=== PATIENT | female | born 1935 | race Caucasian/White ===

== ENCOUNTER 2016-09-15 09:46 | Emergency (ER) | payer OTHER ==
[2016-09-15 08:59] LABS: BASOPHIL% 0.7 % (0-2.5); EOSINOPHIL# 0.2 X10e3 (0-0.7); EOSINOPHIL% 3.5 % (0.0-7.0); HEMATOCRIT 27.4 % (35.0-45.0); LYMPHOCYTE# 0.7 X10e3 (1.0-3.5); LYMPHOCYTE% 11.1 % (17.0-45.0); MEAN CELL VOLUME 75.5 FL (83-96); MEAN CORPUSCULAR HEMOGLOBIN 22.1 PG (28-34); MEAN CORPUSCULAR HGB CONC 29.2 g/dL (30-36); MEAN PLATELET VOLUME 7.2 FL (6.5-11.5); MONOCYTE# 1.1 X10e3 (0-1.0); MONOCYTE% 17.1 % (3.0-12.0); NEUTROPHIL# 4.5 X10e3 (1.5-7.1); NEUTROPHIL% 67.6 % (40-75); PLATELET COUNT 253 X10e3 (140-420); RED BLOOD COUNT 3.62 X10e (3.90-5.30); RED CELL DISTRIBUTION WIDTH 21.1 % (11.0-15.5); WHITE BLOOD COUNT 6.7 X10e3 (4.0-10.5)
[2016-09-15 09:01] LABS: DIFF IND NO
[2016-09-15 09:18] LABS: PARTIAL THROMBOPLASTIN TIME 33.1 SECONDS (23.5-31.3)
[2016-09-15 09:29] LABS: ALBUMIN SERUM 2.8 g/dL (3.5-5.0); BILIRUBIN, DIRECT 0.1 mg/dL (0.0-0.2); BILIRUBIN,INDIRECT 0.4 mg/dL (0.0-0.9); BILIRUBIN,TOTAL 0.5 mg/dL (0.2-2.0); CALCIUM SERUM 8.2 mg/dL (8.4-10.2); CREATININE SERUM 0.8 mg/dL (0.6-1.4); GLOM FILT RATE Estimated 69.2 mL/min (>60); POTASSIUM 3.9 mmol/L (3.5-5.1); PROTEIN TOTAL SERUM 8.2 g/dL (6.0-8.3)
== END 2016-09-15 11:55 | disposition home or self-care (01) ==
LOC: CED 09:46
PROVIDERS: Emergency Medicine
DX: D64.9 Anemia, unspecified (principal); I10 Essential (primary) hypertension
CPT/HCPCS: 36415; 80048; 80076; 85025; 85610; 85730; 86850; 86900; 86901; 99283

== ENCOUNTER 2016-09-26 17:39 | Inpatient (IN) | payer OTHER ==
--- NOTE | ~2016-09-26 | CR72 ---
[facility] A Service of [facility] RADIOLOGY TEXT RESULTS PATIENT: FELIX RIVERA LOCATION: [address]19 : 35 UNIT #: [id number] AGE: [address]: Basil Devi MD SEX: F ORDER DR: [id number] [facility] [address] [facility]. [place], [place] [address] [id number] I MR#: [id number] Acc #: [id number] NAME: FELIX RIVERA : 1935 SEX: F STUDY DATE/TIME: 09/27/2016 14:46 UNIT: [facility] ROOM: [facility] STUDY DESCRIPTION: CR Chest Single View Portable Attending Physician: Basil Devi M.D. Ordering Physician: Hector Doran M.D. Primary Care Physician: No Primary Care Physician MEDICAL IMAGING REPORT This report is preliminary unless electronic signature is present EXAM Portable chest, 09/27 INDICATION Line placement today. FINDINGS AP portable chest is compared with earlier this afternoon. No central venous catheter is identified. There is no pneumothorax. Bilateral infiltrates and bilateral pleural effusions are stable from earlier this afternoon. Dictated by... Shane Moon Jr., M.D. THIS IS AN ELECTRONICALLY VERIFIED REPORT Shane Moon Jr., M.D. at 09/28/2016 8:25 AM PARIS/luma TD: 09/27/2016 17:12 JOB #: [id number] MEDICAL IMAGING REPORT Page 1 of 1 COPY
--- NOTE | ~2016-09-26 | CR72 ---
[facility] A Service [facility] RADIOLOGY TEXT RESULTS PATIENT: FELIX RIVERA LOCATION: [address]27 : 35 UNIT #: [id number] AGE: [address]: Basil Devi MD SEX: F ORDER DR: [id number] [place] [id number] [facility]. [place], [place] [address] [id number] I MR#: [id number] Acc #: [id number] NAME: FELIX RIVERA : 1935 SEX: F STUDY DATE/TIME: 09/30/2016 5:40 UNIT: [facility] ROOM: [facility] STUDY DESCRIPTION: CR Chest Single View Portable Attending Physician: Basil Devi M.D. Ordering Physician: Richelle Blackwell M.D. Primary Care Physician: Primary Care Physician No MEDICAL IMAGING REPORT This report is preliminary unless electronic signature is present EXAM Portable chest INDICATION Shortness of breath for 2 weeks. COMPARISON 09/29/2016. FINDINGS The loculated pneumothorax at the right base appears to have resolved. It may however filled with fluid. There are bilateral pleural effusions which are not significantly changed. There are bilateral interstitial and airspace infiltrates also not significantly changed. Heart size stable. IMPRESSION The previously noted loculated pneumothorax at the right base is no longer present. It may have filled with fluid. Otherwise, there has been no significant change. Dictated by... Johann Painting M.D. THIS IS AN ELECTRONICALLY VERIFIED REPORT Johann Painting M.D. at 09/30/2016 3:56 PM YENIFER/joey TD: 09/30/2016 14:56 JOB #: [id number] [facility] A Service [facility] RADIOLOGY TEXT RESULTS PATIENT: FELIX RIVERA LOCATION: [address] : 35 UNIT #: [id number] AGE: [address]: Basil Devi MD SEX: F ORDER DR: MEDICAL IMAGING REPORT Page 1 of 1 COPY
--- NOTE | ~2016-09-26 | CO ---
Unit #: [id number] #: [id number] Patient: FELIX TREADWELL [id number] [facility]. [place], [place] [address] [id number] I MR#: [id number] NAME: FELIX TREADWELL ROOM: [facility] Age: 81 Sex: F Admission Date: 09/26/2016 : 1935 Attending Physician: Basil Devi M.D. Primary Care Physician: No Primary Care Physician Consultation Date: 09/27/2016 CONSULTATION REPORT REASON FOR CONSULTATION Acute kidney injury. HISTORY OF PRESENT ILLNESS Ms. Treadwell is a confused 81-year-old white female who was sent in from [facility] for failure to thrive there. Again, she is a poor historian and most of the history was obtained from the chart and from the patient's son over the phone. The patient's son, Rikki, says that his mother has been sick off an don since April of last year when she was at [facility] for issues with anemia. She then had an issue with some c-difficile colitis in May that sounds like it was treated in the long-term and outside of the hospital. More recently she has been undergoing heart evaluation by Dr. Coppola and it sounds like thus far she has only had an echo there. The patient was sent in from the nursing because of weakness and a recent diagnosis of a urinary tract infection. She has apparently had some poor p.o. intake there. I asked her about any vomiting or diarrhea and she denied it. Mr. Treadwell said that his mom had recently taken some doxycycline before the recent switch to just a day or so of Cipro by [facility]. We were asked to get involved because of acute kidney injury and high potassium with acidosis. The patient does seem to be a little bit short of breath. She does not have a Oliveira catheter in. Her fluids were stopped because of the concern with pulmonary edema and some shortness of breath. She denies any prior history of kidney problems and so does her son, Rikki. PAST MEDICAL HISTORY 1. Hypertension. 2. Hypothyroidism. 3. Depression. 4. History of anemia. 5. History of c-diff. PAST SURGICAL HISTORY Tonsillectomy. SOCIAL HISTORY The patient lives in a nursing facility at this time. She said she quit smoking about six months ago. No history of alcohol or drug abuse. FAMILY HISTORY The patient denies any family history of kidney disease to me. No one on dialysis. ALLERGIES Unit #: [id number] #: [id number] Patient: FELIX TREADWELL She has a coded allergy to penicillin. HOME MEDICATIONS 1. Lasix 20 mg daily. 2. Cipro 500 mg b.i.d. 3. Hydralazine 25 mg b.i.d. 4. K-Dur 20 mEq b.i.d. 5. Iron tablet b.i.d. 6. Metoprolol succinate 25 mg daily. 7. Paxil 20 mg daily. 8. Synthroid 25 mcg daily. REVIEW OF SYSTEMS A complete 12-point review of systems was attempted, but again made very difficult secondary to her underlying confusion and weakness. She denies any pain issues. No headaches or dizziness. There have been no fevers or chills. In fact, her temperature has been low. No nosebleed reported. No rashes or itching. No flank pain. No bleeding issues. Probable weight loss with her poor p.o. intake. Further review of systems was simply not able to be obtained in this patient. PHYSICAL EXAMINATION GENERAL: This is a frail 81-year-old female, lethargic, appears mildly short of breath. VITALS: Temperature 93, pulse 56, respiratory rate 14, blood pressure 120/57. HEENT: Head is atraumatic, normocephalic. Eyes show pale conjunctivae. No nasal drainage or nosebleed. Oropharynx does look dry. NECK: No rigidity. LUNGS: Diminished breath sounds, especially at the bases. No wheezing. Breathing is mildly labored at rest. HEART: Bradycardic and regular, with soft murmur present. No rub appreciated. ABDOMEN: Soft. Appears nontender. There are bowel sounds present. EXTREMITIES: No lower extremity cyanosis or pitting edema. SKIN: Dry without rashes. MUSCULOSKELETAL: No joint effusions noted. No CVA tenderness to palpation. NEUROLOGIC: Noteworthy for generalized, but no focal deficits. LYMPH: There is no neck or, cervical lymphadenopathy. PSYCHIATRIC: Mood and affect appear normal. DIAGNOSTIC STUDIES IMAGING: CT of the abdomen and pelvis done without contrast did show bilateral pleural effusions and ascites. Generalized body wall edema. Nonobstructing kidney stones. Diffuse atherosclerotic changes. Chest x-ray showed prominence of the pulmonary vascular system, suggesting edema and fluid overload. LABORATORY: Lactic acid level came back at 13.3, troponin negative. Chemistry this afternoon showed a sodium of 138, potassium 6.2, chloride 106, bicarb just 10 for anion gap of 22, glucose 73, BUN 43, creatinine 2.1, calcium 8.3, albumin just 2.7, AST and ALT very high at 1212 and 397 respectively with a CK level of 81. Cortisol level was 44. TSH was normal. CBC showed a white blood cell count of 8.2, hemoglobin 9, platelets 271. No peripheral eosinophilia. BNP was 1276. Urinalysis was nitrite positive with white blood cells and bacteria. No prior labs to Unit #: [id number] #: [id number] Patient: FELIX TREADWELL compare these to. Admission potassium was 6.3 and admission bicarb was 19, so her acidosis has actually gotten worse as has her kidney function and her liver function. ASSESSMENT/PLAN 1. Acute kidney injury. This looks to be secondary to possible sepsis syndrome and prerenal strain from right-sided heart failure. The patient is on antibiotics and we will add Levaquin to the Rocephin coverage. Cardiology will be seeing. Due to her acidosis and hyperkalemia, she will need dialysis today and I did explain this to her son, Rikki, who was in agreement. We have stopped her fluids because of concern about pulmonary edema and her shortness of breath. Her volume status is very tenuous at the moment and we will ask pulmonary to see as well to help guide us with fluid management. 2. Hyperkalemia. The patient will need dialysis. I have ordered STAT dialysis as well as sodium bicarbonate and calcium gluconate. 3. Lactic acidosis. This appears to be due to possible sepsis syndrome and she will be moved to the unit for further care. 4. Urinary tract infection. She is on Rocephin and I will add Levaquin. 5. Right-sided heart failure with significant elevation in liver function test and generalized edema on her CT scan. Cardiology has been asked to see. 6. Previous tobacco abuse. 7. Elevated liver function test. 8. History of c-diff. 9. History of anemia. 10. I did discuss all of these issues with the patient's son, Rikki, and he voiced understanding that his Mom is very ill at this time with heart and kidney issues. Again, we will plan dialysis as soon as possible. I would like to thank Dr. Devi for this consult and the opportunity to participate in the evaluation and care of Ms. Treadwell. Dictated by... Fareed Jay Jr., M.D. NAREN/radha TD: 09/27/2016 12:26 JOB #: [id number] CONSULTATION REPORT Page 1 of 1 X Fareed Jay MD X CONSULTATION REPORT
--- NOTE | ~2016-09-26 | US84 ---
[id number] [facility] [address] [facility]. [place], [place] [address] [id number] I MR#: [id number] Acc #: [id number] NAME: FELIX RIVERA : 1935 SEX: F STUDY DATE/TIME: 09/28/2016 16:23 UNIT: [facility] ROOM: [facility] STUDY DESCRIPTION: US LE Veins Complete Ashu Stdy Attending Physician: Basil Devi M.D. Ordering Physician: Richelle Blackwell M.D. Primary Care Physician: No Primary Care Physician MEDICAL IMAGING REPORT This report is preliminary unless electronic signature is present EXAM Bilateral lower extremity venous ultrasound HISTORY Bilateral lower extremity swelling for 1.5 weeks. TECHNIQUE Venous ultrasound examination of both lower extremities was performed using grayscale, spectral Doppler and color flow Doppler imaging. FINDINGS The examination is negative. There is no evidence of deep venous thrombus from the groin to the lower calf bilaterally. Visualized greater saphenous veins are also patent. IMPRESSION Negative examination. No evidence of lower extremity deep venous thrombosis. Dictated by... Pranay Muniz M.D. THIS IS AN ELECTRONICALLY VERIFIED REPORT Pranay Muniz M.D. at 09/29/2016 11:28 PM HUEY/park TD: 09/29/2016 00:17 JOB #: [id number] MEDICAL IMAGING REPORT Page 1 of 1 COPY
--- NOTE | ~2016-09-26 | NM69 ---
[facility] A Service of [facility] RADIOLOGY TEXT RESULTS PATIENT: FELIX RIVERA LOCATION: [address]27 : 35 UNIT #: [id number] AGE: [address]: Basil Devi MD SEX: F ORDER DR: [id number] [facility] [address] [facility]. [place], [place] [address] [id number] I MR#: [id number] Acc #: [id number] NAME: FELIX RIVERA : 1935 SEX: F STUDY DATE/TIME: 09/29/2016 8:19 UNIT: [facility] ROOM: [facility] STUDY DESCRIPTION: NM Pulm Vent and Perf Attending Physician: Basil Devi M.D. Ordering Physician: Hector Doran M.D. Primary Care Physician: Primary Care Physician No MEDICAL IMAGING REPORT This report is preliminary unless electronic signature is present EXAM Ventilation-perfusion study of the lungs HISTORY Elevated D-dimer, weakness, bilateral lower extremity swelling. History of CHF. Right-sided pneumothorax seen on CT scan. FINDINGS The patient was given 31.3 mCi of technetium 99m DTPA in aerosol form for the ventilation study and 5.4 mCi of technetium 99m MAA for the perfusion study. There is a comparison chest x-ray from the same day. The ventilation-perfusion images are similar in appearance with decreased ventilation and perfusion in the right base but the patient has a small pneumothorax and she has bilateral effusions as well. I do not see any mismatched defects. IMPRESSION There are no mismatched perfusion ventilation defects. I feel the study indicates a low probability for pulmonary embolus. Dictated by... Wagner Staley M.D. THIS IS AN ELECTRONICALLY VERIFIED REPORT Wagner Staley M.D. at 09/29/2016 4:07 PM Uziel TD: 09/29/2016 10:22 JOB #: [id number] MEDICAL IMAGING REPORT Page 1 of 1 COPY
--- NOTE | ~2016-09-26 | FU ---
[facility] Nutrition Therapy DATE: 10/09/16 Patient: FELIX RIVERA Physician: KUSHAL Address: [facility] Room/Bed: [address] [place] [address], Zip: [place] [address] Admit Date: 09/26/16 Date of : [birth year] Height: 5 8 Weight: 133 60.4 NUTRITION MONITORING/FOLLOW-UP: Reason: PT SEEN FOR [id number] DX: ORLANDO PT HAS BEEN PLACED ON COMFORT MEASURES ONLY. RD AVAILABLE IF NEEDED Respectfully, MORENITA FLETCHER MS, RD, LD Food and Nutritional Services [facility] cc: client file
--- NOTE | ~2016-09-26 | CT57 ---
[facility] A Service of [facility] RADIOLOGY TEXT RESULTS PATIENT: FELIX RIVERA LOCATION: [address]27 : 35 UNIT #: [id number] AGE: [address]: Basil Devi MD SEX: F ORDER DR: [id number] [facility]. [place], [place] [address] [id number] I MR#: [id number] Acc #: [id number] NAME: FELIX RIVERA : 1935 SEX: F STUDY DATE/TIME: 09/28/2016 12:30 UNIT: [facility] ROOM: [facility] STUDY DESCRIPTION: CT Chest Wo Cont Attending Physician: Basil Devi M.D. Ordering Physician: Richelle Blackwell M.D. Primary Care Physician: No Primary Care Physician MEDICAL IMAGING REPORT This report is preliminary unless electronic signature is present EXAM CT of the chest without contrast 09/28/2016 INDICATIONS Respiratory distress and weakness for 2 weeks. Patient has a history of congestive heart failure. TECHNIQUE Axial CT images were obtained from the thoracic inlet through the dome of the diaphragm. No intravenous contrast material was administered. This CT exam was performed with one or more of the following radiation dose reduction techniques: automatic exposure control, adjustment of mA and/or kV according to patient size, and iterative reconstruction. FINDINGS This patient has bilateral large pleural effusions right greater than left. Very small right-sided pneumothorax is noted. Patient has cardiomegaly and interlobular septal thickening favored to represent congestive heart failure. The thyroid gland appears unremarkable, trachea and esophagus are within normal limits. There is trace pericardial effusion, there are coronary artery calcifications as well as dystrophic calcifications of the mitral valve annulus. Patient is suspected to have gallstones incompletely seen on this exam, no acute abnormalities seen within the upper abdomen. No aggressive osseous abnormalities are seen. IMPRESSION 1. Cardiomegaly and interlobular septal thickening favored to represent congestive heart failure. 2. Large bilateral pleural effusions right greater than left. 3. The patient is also noted to have a very small right-sided pneumothorax. Efforts are being made to contact the patient's nurse at the time of this dictation. [facility] A Service of [facility] RADIOLOGY TEXT RESULTS PATIENT: FELIX RIVERA LOCATION: [facility] CICCU2-07 : 35 UNIT #: [id number] AGE: [address]: Basil Devi MD SEX: F ORDER DR: 4. Also noted but not mentioned in the report is anasarca. 5. Cholelithiasis. Findings were reviewed with the patient's nurse following this dictation. Dictated by... Erma Hughes M.D. THIS IS AN ELECTRONICALLY VERIFIED REPORT Erma Hughes M.D. at 09/29/2016 10:04 AM DEAN/lj TD: 09/28/2016 18:17 JOB #: [id number] MEDICAL IMAGING REPORT Page 1 of 1 COPY
--- NOTE | ~2016-09-26 | CR170 ---
[facility] A Service of [facility] RADIOLOGY TEXT RESULTS PATIENT: FELIX RIVERA LOCATION: [address] 237- : 35 UNIT #: [id number] AGE: [address]: Santhosh Rebollar MD SEX: F ORDER DR: [id number] [facility] [address] [facility]. [place], [place] [address] [id number] I MR#: [id number] Acc #: [id number] NAME: FELIX RIVERA : 1935 SEX: F STUDY DATE/TIME: 10/17/2016 15:27 UNIT: [facility] ROOM: [facility] STUDY DESCRIPTION: CR Knee 2 Views Rt Attending Physician: Santhosh Rebollar M.D. Ordering Physician: Santhosh Rebollar M.D. Primary Care Physician: No Primary Care Physician MEDICAL IMAGING REPORT This report is preliminary unless electronic signature is present EXAM Right knee INDICATIONS Right knee pain for 1 month. Pain with weightbearing. FINDINGS Two views of the right knee without comparison. There is no acute fracture or dislocation. No knee effusion. The joint spaces are well preserved. Atherosclerotic calcifications are identified in the popliteal artery. IMPRESSION Negative right knee Dictated by... Arjun Leslie M.D. THIS IS AN ELECTRONICALLY VERIFIED REPORT Arjun Leslie M.D. at 10/18/2016 7:35 AM KATT/park TD: 10/17/2016 23:40 JOB #: [id number] MEDICAL IMAGING REPORT Page 1 of 1 COPY
--- NOTE | ~2016-09-26 | CR72 ---
[facility] A Service of [facility] RADIOLOGY TEXT RESULTS PATIENT: FELIX RIVERA LOCATION: [address] : 35 UNIT #: [id number] AGE: [address]: Basil Devi MD SEX: F ORDER DR: [id number] [facility] [address] [facility]. [place], [place] [address] [id number] I MR#: [id number] Acc #: [id number] NAME: FELIX RIVERA : 1935 SEX: F STUDY DATE/TIME: 10/01/2016 05:06 UNIT: [facility] ROOM: [facility] STUDY DESCRIPTION: CR Chest Single View Portable Attending Physician: Basil Devi M.D. Ordering Physician: Richelle Blackwell M.D. Primary Care Physician: Primary Care Physician No MEDICAL IMAGING REPORT This report is preliminary unless electronic signature is present EXAM Portable chest 10/01/2016 at 05:06 INDICATION Respiratory failure, weakness. FINDINGS AP portable chest is compared with 09/30/2016. ET tube remains in good position. Heart size stable. There are continued infiltrates in both [id number]-[id number]-fpfdt lungs. Small bilateral effusions are stable. No pneumothorax is seen. Dictated by... Shane Moon Jr., M.D. THIS IS AN ELECTRONICALLY VERIFIED REPORT Shane Moon Jr., M.D. at 10/02/2016 5:23 AM PARIS/billy TD: 10/01/2016 22:10 JOB #: [id number] MEDICAL IMAGING REPORT Page 1 of 1 COPY
--- NOTE | ~2016-09-26 | A ---
[facility] Nutrition Therapy DATE: 10/02/16 Patient: FELIX RIVERA Physician: KUSHAL Address: [facility] Room/Bed: [address], Zip: [place] [address] Admit Date: 09/26/16 Date of : 35 Height: 5 8 Weight: 125 57 NUTRITIONAL ASSESSMENT: REASON: Enteral nutrition consult Admitting Dx: 81 y/o female admitted with AKA and dehydration, had dialysis catheter placed 09/27, transfer to ICU from [facility] on 4L nasal cannula, now intubated PMH: Depression, hypothyroidism, HTN Anthropometrics: Ht: 68", admission wt: 59.4 kg, current wt: 57 kg, BMI: 19.9 (normal; based on admission wt) Labs: Na 130, Glucose 155, BUN 29, Creat 2.0, AST 470, ALT 419, Glucose POC 150, Amylase 136, Lipase 108, GFR 22.8, K+ WNL, Mg WNL on 10/01, no Phos ordered Meds: Mag-ox, Bumex, Solu-Cortef, IV Levaquin, Synthroid (currently ordered PO however pt is intubated), Zofran prn, pressors and sedation off I/O & Bowel function: LBM unknown, DHT in place Skin Integrity: Stage II pressure ulcer R heel, blanchable redness coccyx, redness L spine area Estimated Nutrition Needs: 2134-0726 kcals per day (25-30 kcals/kg) 71-83 g protein per day (1.2-1.4 g/kg) Fluids per MD Assessment: Chart and hospital course reviewed- see admitting dx and PMH as stated above. RD assessing per weekend consult for enteral nutrition recommendations, on-call RD spoke with nursing yesterday after being paged and recommended Nepro formula; start @ 15 ml/hr and increase by 10 ml q 12 hours to goal of 40 ml/hr. That RD also noted pt has had poor oral intake FINANCIAL REPORTING DIRECTOR and is at risk for refeeding syndrome. EN not yet started as the patient got a bronch yesterday, however DHT is in place and feeds will start today. Patient diagnosed with ORLANDO and has been on HD however MD states she will get no more dialysis. Nursing reports renal function worsening and MD is happy with Nepro formula, although the patient's potassium is WNL and Phos lab has not been drawn. The patient is fluid overloaded on Bumex, hyponatremia noted. Nepro likely most appropriate formula since she will no longer be receiving dialysis and kidney function is worsening, agree with rate. See recs below, will follow. Dx: Inadequate energy intake r/t intubation AEB NPO status, need for EN. [facility] Nutrition Therapy DATE: 10/02/16 Patient: FELIX RIVERA Physician: KUSHAL Address: [facility] Room/Bed: [address], Zip: [place] [address] Admit Date: 09/26/16 Date of : 35 Height: 5 8 Weight: 125 57 Intervention: Start EN per DHT Monitoring, Evaluation and Goals: 1. EN consistent with estimated nutrition needs. 2. Improvement in labs (lytes, glucose, BUN, Creatinine, AST, ALT, GFR, check Phos). 3. Promote wound healing noting Stage II pressure ulcer. 4. Prevent unintentional weight loss. Monitor: Per protocol, criteria to determine if above goals met Recommendations: 1. Start enteral nutrition per DHT with Nepro @ 15 ml/hr, increasing rate by 10 ml q 12 hours until goal rate of 40 ml/hr is reached, to provide 1728 kcals, 78 g protein and 701 ml water. Add free water flushes per MD once at goal rate once hyponatremia resolved. *Please check Phos lab. Monitor for signs of refeeding syndrome and replace lytes prn. 2. Consider changing Synthroid administration to IV now that patient is intubated. If given per DHT enteral feeds will need to be held 1 hour before and after administration, meaning enteral feeds will run over 22 hours per day, which will still meet the patient's estimated nutrition needs. 3. Please weigh q 3 days for monitoring purposes. 4. If extubated advance to 2g sodium diet per WORKFORCE PLANNING ANALYST. RD will follow hospital course Moderate-severe nutrition risk Respectfully, Maty Timmons, ANNA, LD Food and Nutritional Services [facility] cc: client file
--- NOTE | ~2016-09-26 | TOC ---
Unit #: [id number] #: [id number] Patient: FELIX RIVERA [id number] [facility]. [place], [place] [address] [id number] I MR#: [id number] NAME: FELIX RIVERA ROOM: [facility] Age: 81 Sex: F Admission Date: 09/26/2016 : 1935 Attending Physician: Basil Devi M.D. Primary Care Physician: Primary Care Physician No TRANSFER OF CARE SUMMARY DISCHARGE DIAGNOSES 1. Acute hypoxic respiratory failure. 2. Septic shock. 3. Pneumonia. 4. Lactic acidosis. 5. Acute kidney injury. 6. Severe tricuspid regurgitation. 7. Shock liver. 8. Anemia. 9. Right-sided pneumothorax. 10. Hyponatremia. HOSPITAL COURSE The patient is an 81-year-old female who presented to [facility] on 09/26/2016 secondary to feeling weak. At the time of admission, the patient was a very poor historian and essentially unable to provide a history. She was noted to have a creatinine of 1.8 and was thought to have urinary tract infection. She was also noted to have hyperkalemia and was admitted for treatment. She was started on IV fluids and Rocephin. The following morning, the patient was noted to have become much more acidotic. Her bicarb was noted to be 10 and a lactic acid was performed. Ultimately, this returned at 13 and the patient was bolused with fluids per sepsis protocol. A 2D echo was ordered as well. She was noted to have an elevated BNP at 1276. The patient's 2D echo returned showing a normal ejection fraction at 50%. She was, however, noted to have some right ventricular volume overload and a severely dilated left atrium and severely enlarged right atrium with a severely dilated right ventricle as well. She was noted to have severe tricuspid regurgitation. Given the acidosis and worsening renal function, a nephrology consult was obtained. She was prepped for possible hemodialysis. She was then transferred to the ICU. The patient was initially managed with an attempt at diuresis with pressors, Bumex and gentle hydration. When this ultimately failed to produce results, the patient was started on hemodialysis. The patient did ultimately decompensate from a respiratory standpoint. Her urine cultures had returned negative several days prior and the source of the patient's infection had ultimately been determined to be pneumonia. Unit #: [id number] #: [id number] Patient: FELIX RIVERA The patient had been switched to Rocephin and Levaquin at the time of transfer to the ICU. When her respiratory status declined three days later the patient ultimately then required intubation. Shortly after intubation, the patient's urine output picked up dramatically. On 09/28/2016, the patient was noted to have 55 mL of urine out and on 10/01/2016, the patient diuresed 4 liters. She has only needed a couple of hemodialysis treatments at this point and given the pickup of urine output, she at this time required no further dialysis. The patient did develop a right pneumothorax and has had a chest tube placed at this time. Dictated by... Basil Devi M.D. NOHEMI/shaheed TD: 10/02/2016 21:01 JOB #: [id number] TRANSFER OF CARE SUMMARY Page 1 of 1 X Basil Devi MD X TRANSFER OF CARE SUMMARY
--- NOTE | ~2016-09-26 | CR72 ---
[facility] A Service of [facility] RADIOLOGY TEXT RESULTS PATIENT: FELIX RIVERA LOCATION: CICCU3 CICCU3-19 : 35 UNIT #: [id number] AGE: [address]: Basil Devi MD SEX: F ORDER DR: [id number] [facility] [address] [facility]. [place], [place] [address] [id number] I MR#: [id number] Acc #: [id number] NAME: FELIX RIVERA : 1935 SEX: F STUDY DATE/TIME: 09/26/2016 23:32 UNIT: CEDOF ROOM: 30062 STUDY DESCRIPTION: CR Chest Single View Portable Attending Physician: Ayah Pederson M.D. Ordering Physician: Ayah Pederson M.D. Primary Care Physician: Primary Care Physician No MEDICAL IMAGING REPORT This report is preliminary unless electronic signature is present EXAM Portable chest HISTORY Shortness of air, [place]. COMPARISON None. FINDINGS Portable view of the chest demonstrates cardiomegaly with prominence of pulmonary vascular and interstitium suggesting pulmonary edema or fluid overload. Small left pleural effusion and trace right pleural effusion. Minimal aortic atherosclerotic changes. No invasive tubes or lines. No pneumothorax Dictated by... Madeline Painting M.D. THIS IS AN ELECTRONICALLY VERIFIED REPORT Madeline Painting M.D. at 09/27/2016 10:32 PM AMOL/billy TD: 09/27/2016 00:11 JOB #: [id number] MEDICAL IMAGING REPORT Page 1 of 1 COPY
--- NOTE | ~2016-09-26 | CO ---
Unit #: [id number] #: [id number] Patient: LORRI TREADWELL [id number] [address] [id number] I MR#: [id number] NAME: LORRI TREADWELL ROOM: 237 Age: Sex: F Admission Date: 09/26/2016 : 1935 Attending Physician: Santhosh Rebollar M.D. Primary Care Physician: Primary Care Physician No CONSULTATION REPORT To whom it may concern: RE: Patient Lorri Treadwell, date of 1935. Patient was admitted on 09/26/2016 with the above discharge and/or admission diagnoses. Unfortunately, in accordance with family-s wishes, patient was made comfort care measures only and will not be returned to assisted living facility. Please see above discharge summary for details of hospital course. Certainly, if you should have any questions in regard to the care of this patient or her hospital course, please do not hesitate to contact me. Dictated by... Iam Small/servando TD: 10/04/2016 12:17 JOB #: [id number] CONSULTATION REPORT Page 1 of 1 X Santhosh Rebollar MD X CONSULTATION REPORT
--- NOTE | ~2016-09-26 | CR72 ---
[facility] A Service of [facility] RADIOLOGY TEXT RESULTS PATIENT: FELIX RIVERA LOCATION: [address] : [birth year] UNIT #: [id number] AGE: [address]: Basil Devi MD SEX: F ORDER DR: [id number] [facility] [address] [facility]. [place], [place] [address] [id number] I MR#: [id number] Acc #: [id number] NAME: FELIX RIVERA : 1935 SEX: F STUDY DATE/TIME: 09/29/2016 5:37 UNIT: [facility] ROOM: [facility] STUDY DESCRIPTION: CR Chest Single View Portable Attending Physician: Basil Devi M.D. Ordering Physician: Richelle Blackwell M.D. Primary Care Physician: Primary Care Physician No MEDICAL IMAGING REPORT This report is preliminary unless electronic signature is present EXAM Portable chest INDICATION Follow up congestive heart failure and shortness of air. FINDINGS A portable view of the chest was obtained. There is a small well-circumscribed air density collection in the right base. The CT scan from yesterday showed this to be a small loculated right pneumothorax. It is about 5 cm in maximum dimension. There are diffuse infiltrates throughout the lungs suggesting edema. There are low lung volumes. The heart size is normal. IMPRESSION 1. There is a small right base loculated pneumothorax measuring about 5.5 cm in maximum dimension. It was noted on the CT scan done the day before and has not changed significantly. 2. Diffuse infiltrates suggesting edema. Dictated by... Wagner Staley M.D. THIS IS AN ELECTRONICALLY VERIFIED REPORT Wagner Staley M.D. at 09/29/2016 8:15 AM KHADIJAH/joey TD: 09/29/2016 07:25 [facility] A Service of [facility] RADIOLOGY TEXT RESULTS PATIENT: FELIX RIVERA LOCATION: [address] : 35 UNIT #: [id number] AGE: [address]: Basil Devi MD SEX: F ORDER DR: JOB #: [id number] MEDICAL IMAGING REPORT Page 1 of 1 COPY
--- NOTE | ~2016-09-26 | CR72 ---
[facility] A Service of [facility] RADIOLOGY TEXT RESULTS PATIENT: FELIX RIVERA LOCATION: [address]27 : 35 UNIT #: [id number] AGE: [address]: Basil Devi MD SEX: F ORDER DR: [id number] [facility] [address] [facility]. [place], [place] [address] [id number] I MR#: [id number] Acc #: [id number] NAME: FELIX RIVERA : 1935 SEX: F STUDY DATE/TIME: 10/02/2016 UNIT: [facility] ROOM: [facility] STUDY DESCRIPTION: CR Chest Single View Portable Attending Physician: Baisl Devi M.D. Ordering Physician: Katlin Castillo M.D. Primary Care Physician: Primary Care Physician No MEDICAL IMAGING REPORT This report is preliminary unless electronic signature is present EXAM Chest portable 10/02/2016 09:07 hours HISTORY 81-year-old woman status post chest tube placement today for right pneumothorax. Shortness of air. COMPARISON 10/02/2016 03:26 hours FINDINGS Portable upright chest demonstrates stable endotracheal tube and flexible feeding tube. There is a new small caliber tube at the right lung apex with decrease in size of the right pneumothorax with approximately 5% remaining pneumothorax. Interstitial change in both lungs is stable. IMPRESSION New small caliber tube at the right lung apex. There is decrease in the right pneumothorax now measuring approximately 5%. Previously 20%. Stable bilateral interstitial changes. Dictated by... Lashanda Julio M.D. THIS IS AN ELECTRONICALLY VERIFIED REPORT Lashanda Julio M.D. at 10/02/2016 2:26 PM SMM/annita TD: 10/02/2016 12:52 JOB #: [id number] MEDICAL IMAGING REPORT Page 1 of 1 COPY
--- NOTE | ~2016-09-26 | EKG ---
PATIENT: FELIX RIVERA UNIT #: [id number] Ventricular Rate: 68 BPM Atrial Rate: 68 BPM P-R Interval: 168 ms QRS Duration: 70 ms Q-T Interval: 440 ms QTC Calculation(Bezet): 467 ms P [place]: 70 degrees Calculated R [place]: 13 degrees Calculated T [place]: 74 degrees Diagnosis Line: Normal sinus rhythm Diagnosis Line: Cannot rule out Anteroseptal infarct , age Diagnosis Line: undetermined Diagnosis Line: Abnormal ECG Diagnosis Line: No previous ECGs available Diagnosis Line: Confirmed by VIRAL HAMMONDS MD ([id number]) on 09/27/2016 Diagnosis Line: 10:05:29 AM INTERPRETING MD: CASSIUS CARDONA
--- NOTE | ~2016-09-26 | EKG ---
PATIENT: FELIX RIVERA UNIT #: [id number] Ventricular Rate: 58 BPM Atrial Rate: 58 BPM P-R Interval: 168 ms QRS Duration: 76 ms Q-T Interval: 540 ms QTC Calculation(Bezet): 530 ms P [place]: 65 degrees Calculated R [place]: 37 degrees Calculated T [place]: 26 degrees Diagnosis Line: Sinus bradycardia Diagnosis Line: Low voltage QRS Diagnosis Line: Septal infarct (cited on or before 26-SEP-2016) Diagnosis Line: Prolonged QT Diagnosis Line: Abnormal ECG Diagnosis Line: When compared with ECG of 26-SEP-2016 18:04, Diagnosis Line: Questionable change in initial forces of Anterior Diagnosis Line: leads Diagnosis Line: T wave amplitude has increased in Lateral leads Diagnosis Line: QT has lengthened Diagnosis Line: Confirmed by ANDREW RAMÍREZ MD ([id number]) on 09/28/2016 Diagnosis Line: 11:14:24 PM INTERPRETING MD: DARRELL CARDONA
--- NOTE | ~2016-09-26 | FU ---
[facility] Nutrition Therapy DATE: 10/04/16 Patient: FELIX RIVERA Physician: KUSHAL Address: [facility] Room/Bed: [address], Zip: [place] [address] Admit Date: 09/26/16 Date of : [birth year] Height: 5 8 Weight: 133 60.4 NUTRITION MONITORING/FOLLOW-UP: Reason: PT SEEN FOR ENTERAL NUTRITION SUPPORT FOLLOW-UP DX: [place], DEHYDRATION Anthropometrics: 5'8", WT: 133# (60 KG), BMI: 20.2 -WEIGHTS HAVE BEEN STABLE SINCE ADMIT Labs: GLU: 115, BUN: 52, CREAT: 1.7, CA+:8.2, ALB: 2.0, AST: 255, ALT: 282, K+:3.0, AMYLASE: 136, LIPASE: 108, GFR: 27.8 Meds: SENOKOT, VERSED, NACL, SYNTHROID (VIA PO FROM [employer] BUT RN REPORTS VIA DHT), ZOFRAN, KCL I&O's: 1302/1880 Skin: STAGE 2 PRESSURE ULCER (R) HEEL; BLANCHABLE REDNESS COCCYX; REDNESS (L) SPINE Estimated Nutrition Needs: [id number] KCAL 71-83 G PRO Assessment: CHART REVIEWED AND EVENTS NOTED. PT SEEN FOR ENTERAL NUTRITION SUPPORT FOLLOW-UP. PT CONTINUES TO BE INTUBATED AND SEDATED RECEIVING EN OF NEPRO @ 40 ML/HR. PER RN AND CHART, PT TOLERATING EN, NOTING NO ISSUES AT THIS TIME. FAMILY IN ROOM REPORTED NO DIET QUESTIONS AT THIS VISIT. PER PUMP HISTORY, PT RECEIVING ~76% ESTIMATED NUTRIENT NEEDS PAST [address] TO CONTINUE TO FOLLOW. OF NOTE, PT'S K+ IS LOW. NO PHOS LEVEL OBTAINED YET. -EN PROVIDES X 22 HOURS (PT ON SYNTHROID)-1584 KCAL, 71 G PRO, 642 ML FREE H20 Dx: INADEQUATE ENERGY INTAKE R/T INTUBATION AEB NPO STATUS, NEED FOR EN.-AEB RESOLVED. NEW DX: INADEQUATE ENERGY INTAKE R/T INTUBATION PT RECEIVING EN. Intervention: 1. ENTERAL NUTRITION SUPPORT Monitoring, Evaluation and Goals: 1. ENTERAL NUTRITION; PROVIDE >80% ESTIMATED NUTRIENT NEEDS-IN PROGRESS/NOT MET 2. LABS; WNL- IN PROGRESS 3. SKIN; PROMOTE SKIN HEALING-IN PROGRESS 4. WEIGHTS; PREVENT WEIGHT LOSS-ACTIVE MONITOR: [facility] Nutrition Therapy DATE: 10/04/16 Patient: FELIX RIVERA Physician: KUSHAL Address: [facility] Room/Bed: [address], Zip: [place] [address] Admit Date: 09/26/16 Date of : [birth year] Height: 5 8 Weight: 133 60.4 -TF RATE/RESIDUALS -WEIGHTS -EXTUBATION? -LABS Recommendations: 1. PLEASE OBTAIN PHOS LEVEL 2. RECOMMEND TO CONTINUE CURRENT ENTERAL NUTRITION SUPPORT OF NEPRO @ 40 ML/HR X 22 HOURS (PT ON SYNTHROID-HOLD ONE HOUR BEFORE AND ONE HOUR AFTER ADMINISTRATION) -ADEQUATE FOR PT'S CURRENT ESTIMATED NEEDS CONTINUE FREE H20 FLUSHES PER MD 3. ONCE PT'S ELECTROLYTES WITHIN NORMAL RANGE, RECOMMEND TO CHANGE CURRENT ENTERAL NUTRITION SUPPORT TO JEVITY 1.5 @ 20 ML/HR, ADVANCE 10 ML q 8 HOURS TO GOAL RATE OF 45 ML/HR + SUGAR-FREE PROSTAT ONCE DAILY X 22 HOURS (PT ON SYNTHROID) -PROVIDES 1585 KCAL, 78 G PRO, 752 ML FREE H20 ADD FREE H20 FLUSHES PER MD 4. ONCE PT EXTUBATED, ADVANCE DIET PER LEAN ENGINEER + [address] WILL F/U PER PROTOCOL PT IS MOD/SEVERELY COMPROMISED Respectfully, MORENITA FLETCHER MS, RD, LD [facility] cc: client file
--- NOTE | ~2016-09-26 | OR ---
Unit #: [id number] #: [id number] Patient: FELIX RIVERA [id number] [place], [place] [address] [id number] I MR#: [id number] NAME: FELIX RIVERA ROOM: [facility] Date of Procedure: 10/03/2016 Admission Date: 09/26/2016 Surgeon: Ethan Castillo M.D. : 1935 Attending Physician: Santhosh Rebollar M.D. Primary Care Physician: No Primary Care Physician PROCEDURE OPERATIVE NOTE PREOPERATIVE DIAGNOSIS Respiratory failure. PROCEDURE PERFORMED Small catheter chest tube placement. PREMEDICATION Lidocaine topical. INDICATION Right-sided pneumothorax. DESCRIPTION OF PROCEDURE An informed consent was obtained from the patient's son, after explaining the benefits and risks of this procedure. The patient's right chest was prepped and cleaned with chlorhexidine and then a body drape was applied. Then, a needle was inserted in the second intercostal space and 1% lidocaine was instilled. Then, a small port catheter needle was inserted in the second intercostal space until air flow was filled in the syringe and then a small port catheter was threaded over the needle inside the chest cavity and then it was connected to the chest tube chamber. A bubble was felt in the box and STAT x-ray confirmed placement. The patient tolerated her procedure well with no immediate complication. Suture was applied with clean dressing. Dictated by... Ethan Castillo M.D. EA/leni TD: 10/03/2016 10:48 JOB #: [id number] Unit #: [id number] #: [id number] Patient: FELIX RIVERA PROCEDURE OPERATIVE NOTE Page 1 of 1 X ETHAN AGUILAR MD X PROCEDURE OPERATIVE NOTE
--- NOTE | ~2016-09-26 | CR72 ---
[facility] A Service of [facility] & [facility] RADIOLOGY TEXT RESULTS PATIENT: FELIX RIVERA LOCATION: [address] : [birth year] UNIT #: [id number] AGE: [address]: Basil Devi MD SEX: F ORDER DR: [id number] [facility] [address] [facility]. [place], [place] [address] [id number] I MR#: [id number] Acc #: [id number] NAME: FELIX RIVERA : 1935 SEX: F STUDY DATE/TIME: 10/02/2016 03:26 UNIT: [facility] ROOM: [facility] STUDY DESCRIPTION: CR Chest Single View Portable Attending Physician: Basil Devi M.D. Ordering Physician: Richelle Blackwell M.D. Primary Care Physician: Primary Care Physician No MEDICAL IMAGING REPORT This report is preliminary unless electronic signature is present EXAM Portable chest 10/02/2016 at 03:26 INDICATION Respiratory failure. Ventilator patient. FINDINGS AP portable chest is compared with 10/01/2016. ET tube is well positioned. There is a new right side hydropneumothorax which probably measures at least 20%. No midline shift. Consolidations in both ats-zs-yfpsb lungs are probably slightly worsened. No left-side pneumothorax is seen. ADDENDUM Findings have been discussed directly with the patient's nurse, Rupali, in the ICU who reports she will notify the patient's physician immediately. STAT * RESULT Dictated by... Shane Moon Jr., M.D. THIS IS AN ELECTRONICALLY VERIFIED REPORT Shane Moon Jr., M.D. at 10/02/2016 5:22 AM PARIS/billy TD: 10/02/2016 03:50 JOB #: [id number] MEDICAL IMAGING REPORT [facility] A Service of [facility] RADIOLOGY TEXT RESULTS PATIENT: FELIX RIVERA [facility] UNIT #: [id number] AGE: [address]: Basil Devi MD SEX: F ORDER DR: Page 1 of 1 COPY
--- NOTE | ~2016-09-26 | CO ---
Unit #: [id number] #: [id number] Patient: FELIX RIVERA [id number] [address] [place], [place] [address] [id number] I MR#: [id number] NAME: FELIX RIVERA ROOM: [facility] Age: 81 Sex: F Admission Date: 09/26/2016 : 1935 Attending Physician: Basil Devi M.D. Primary Care Physician: Primary Care Physician No CONSULTATION REPORT REASON FOR CONSULTATION Congestive heart failure. HISTORY OF PRESENT ILLNESS This is an 81-year-old white female who was seen at [facility] in April 2016 for acute respiratory failure and qvmqa-dw-tocecer diastolic heart failure. Echocardiogram at that time showed diastolic dysfunction with preserved ejection fraction of 65%. After discharge, the [facility] was [facility] where she remains. At some point, she followed up with Dr. Coppola as an outpatient. The patient is a poor historian but says she had weakness for the past week and a half. According to the emergency room records, the patient was sent from the [facility] because of weakness for two weeks. She had recently been diagnosed with urinary tract infection and has been on Cipro. She apparently had an episode of nausea but no diarrhea or vomiting. On arrival, potassium level was elevated at 6.3. She was treated with bicarbonate, Kayexalate and calcium gluconate in the emergency room. She was started on IV fluids. There was elevation of LFTs with CT of the abdomen and pelvis revealing cholelithiasis. Ultrasound of the gallbladder showed mild abdominal wall edema. Her chest x-ray was suggestive of pulmonary edema. BNP elevated at 1276. Lactic acid level was 13.3 consistent with severe sepsis. She was hypothermic with temperature of 93. She was initially normotensive, however her blood pressure dropped. She was transferred to the intensive care unit for further monitoring. Troponin was negative. EKG on admission showed questionable anteroseptal infarct. She has had no prior cardiac history or testing according to previous records. She has a history of hypertension and a remote history of nicotine abuse. PAST MEDICAL HISTORY 1. 2D echocardiogram April 2016 at [facility] shows ejection fraction of 65% with grade 2 diastolic dysfunction. Left atrial cavity mildly dilated. Qtdh-mo-iojhucew mitral regurgitation. 2. Hypertension. 3. Diastolic heart failure. 4. Hypothyroidism. 5. Depression. 6. Former smoker. PAST SURGICAL HISTORY Tonsillectomy. [facility] MEDICATIONS Unit #: [id number] #: [id number] Patient: FELIX RIVERA 1. Lasix 20 mg daily. 2. Cipro 500 mg b.i.d. 3. Hydralazine 25 mg b.i.d. 4. Potassium chloride 20 mEq b.i.d. 5. Ferrous sulfate 325 mg b.i.d. 6. Metoprolol succinate 25 mg daily. 7. Paxil 20 mg daily. 8. Levothyroxine 25 mcg daily. ALLERGIES Penicillin. SOCIAL HISTORY The patient resides in a [facility]. She was smoking heavily in April for unknown duration. There is no record of illicit drug or alcohol use. FAMILY HISTORY Noncontributory. REVIEW OF SYSTEMS Unable to adequately obtain because of patient's confusion. She denies chest pain. Unaware of dyspnea. PHYSICAL EXAMINATION VITAL SIGNS: Blood pressure 83/35, heart rate 56, temperature 93.3. GENERAL: This is an 81-year-old white female who is in no acute respiratory distress. NEUROLOGIC: She is currently lethargic but more alert earlier. No focal weaknesses. Noted for confusion. LUNGS: Fine rales in both lung bases. HEART: S1, S2 heart sounds are normal with an increase in the heart size. No murmurs, rubs, or clicks. Regular rate and rhythm. ABDOMEN: Soft, nontender. Bowel sounds are absent. There is noted liver enlargement. EXTREMITIES: Trace leg edema. SKIN: Warm and dry. DIAGNOSTIC STUDIES LABORATORY: Glucose 73, BUN 43, creatinine 2.1, sodium 138, potassium 6.2, AST 1212, ALT 387, alkaline phosphatase 142. Troponin less than 0.03. BNP 1276. Lactic acid 10.8. TSH 5.12. D-dimer greater than 10,000. White count 8.2, hemoglobin 9.2, hematocrit 34.9, platelet count 271. IMAGING: Chest x-ray noted for pulmonary edema. CARDIOVASCULAR: EKG shows sinus bradycardia with peaked T waves. There is prolonged QT interval at 530 msec. IMPRESSION 1. Questionable septic shock. 2. Hypothermia. 3. Hyperkalemia. 4. Gzgfj-wp-pxfljrk diastolic heart failure. 5. Severe metabolic acidosis. 6. Possible pulmonary embolism. 7. Acute kidney injury. Unit #: [id number] #: [id number] Patient: FELIX RIVERA 8. Preserved biventricular systolic function and ejection fraction greater than 50% per echocardiogram. PLAN 1. Preliminary echocardiogram showed normal left ventricular systolic function but there was an increase in the right ventricle size. 2. Hemodialysis to correct hyperkalemia and for fluid removal. 3. Was started on Lovenox because of elevated D-dimer and elevated RV size with likely pulmonary embolism. 4. Central line was placed to the left femoral artery. 5. Support blood pressure with Angel-Synephrine drip in addition to dopamine. 6. Renal is following for acute kidney injury. Thank you for allowing us to assist with this patient's care. Dictated by... Abdullahi CashPMikiRJignesh for Iam Roca/shaheed TD: 09/27/2016 15:34 JOB #: [id number] CONSULTATION REPORT Page 1 of 1 X Cooper Del Toro APRN CONSULTATION REPORT
--- NOTE | ~2016-09-26 | HP ---
Unit #: [id number] #: [id number] Patient: FELIX RIVERA [id number] [address] [place], [place] [address] [id number] E MR#: [id number] NAME: FELIX RIVERA ROOM: Age: 81 Sex: F Admission Date: 09/26/2016 : 1935 Attending Physician: Manish Arora M.D. Primary Care Physician: Primary Care Physician No HISTORY AND PHYSICAL CHIEF COMPLAINT Acute kidney injury, dehydration, possible UTI. HISTORY OF PRESENT ILLNESS This 81-year-old female with hypothyroidism, depression, hypertension, is admitted for acute kidney injury. The patient herself is a somewhat poor historian. I am told by the ER physician that she came to the hospital complaining of feeling weak with poor p.o. intake recently treated for a UTI. She admits to weakness along with decreased p.o. intake for the past 1-1/2 weeks. Labs are notable for acute kidney injury, hyperkalemia, and dehydration. Possible UTI also noted. Patient was bolused with 2 liters of saline, given 1 gram of Rocephin and referred for admission. PAST MEDICAL HISTORY 1. Hypertension. 2. Hypothyroidism. 3. Depression. 4. Tonsillectomy. ALLERGIES Penicillin. HOME MEDICATIONS 1. Cipro. 2. Iron. 3. Lasix. 4. Metoprolol. 5. Synthroid. 6. Hydralazine. 7. Paxil. 8. Potassium. No doses unfortunately were written. SOCIAL HISTORY The patient states that she lives with her . Used to smoke but no longer smokes. Does not drink alcohol. FAMILY HISTORY Noncontributory given patient's age. REVIEW OF SYSTEMS Unit #: [id number] #: [id number] Patient: FELIX RIVERA Review of systems are difficult to obtain as patient herself is a poor historian. PHYSICAL EXAMINATION VITAL SIGNS: Temperature 97.5, pulse 69, respirations 16, blood pressure 131/66, O2 saturation 99% on room air. GENERAL: Somewhat ill-appearing 81-year-old female but in no acute distress. HEENT: Eyes PERRLA. Extraocular muscles are intact. Pharynx benign. NECK: Supple without adenopathy or thyromegaly. CHEST: Clear on patient's supine exam, she is too weak to even turn over. HEART: Normal S1, S2, there may be a right soft systolic murmur. ABDOMEN: Bowel sounds are present. Patient has a mass in her epigastric region or a fullness and I believe this is pulsatile. Mildly tender. Mild hepatomegaly noted on exam. EXTREMITIES: Without edema. Pedal pulses are markedly diminished. NEUROLOGIC: Mildly somnolent but easily arousable. She is oriented to the fact that she is in the hospital, person and year. Cranial nerves are intact. She has equal strength throughout but is extremely weak on exam. DIAGNOSTIC STUDIES LABORATORY: Hematocrit 33.3, normal white count, MCV 77, normal platelet count. SMA-12 glucose 64, BUN 42, creatinine 1.8 up from a BUN of 20 and creatinine of 0.8 two weeks ago, potassium 6.3, CO2 is 19, albumin 2.9, AST 174, ALT 71, alkaline phosphatase 147 also elevated from 2 weeks ago. PTT 33.1, INR 1. Cardiac markers are negative. Urine positive nitrates, protein, 5-10 wbc's, 2+ bacteria noted. CARDIOVASCULAR: EKG sinus rhythm, rate 68. Poor R-wave progression V1 through V3. ASSESSMENT 1. Dehydration, acute kidney injury, and hyperkalemia. 2. Fullness in the epigastric region which seems to be a bit pulsatile. Will obtain a CT scan. 3. Elevated liver function tests which are new. 4. Recent urinary tract infection treated with Cipro. 5. Hypertension. 6. Hypothyroidism. 7. Hypoglycemia with poor p.o. intake. PLAN 1. Continue Rocephin for now. 2. IV fluids with dextrose and obtain Accu-Cheks. 3. Will treat hyperkalemia with Kayexalate, an amp of bicarb along with an amp of calcium and repeat labs in a few hours. 4. Check thyroid function tests. 5. Chest x-ray. 6. CT scan of the abdomen. 7. SCDs for DVT prophylaxis. 8. Verify home medicines, stop Lasix, potassium, and Cipro for now. 9. Further workup and consultants depending on above. Unit #: [id number] #: [id number] Patient: FELIX RIVERA Dictated by Ayah Pederson M.D. AML/cs TD: 09/26/2016 23:08 JOB #: [id number] HISTORY AND PHYSICAL Page 1 of 1 X Ayah Pederson MD HISTORY AND PHYSICAL
--- NOTE | ~2016-09-26 | CR72 ---
[facility] A Service of [facility] & [facility] RADIOLOGY TEXT RESULTS PATIENT: FELIX RIVERA LOCATION: [address]27 : [birth year] UNIT #: [id number] AGE: [address]: Basil Devi MD SEX: F ORDER DR: [id number] [facility] [address] [facility]. [place], [place] [address] [id number] I MR#: [id number] Acc #: [id number] NAME: FELIX RIVERA : 1935 SEX: F STUDY DATE/TIME: 09/30/2016 8:42 UNIT: [facility] ROOM: [facility] STUDY DESCRIPTION: CR Chest Single View Portable Attending Physician: Basil Devi M.D. Ordering Physician: Richelle Blackwell M.D. Primary Care Physician: No Primary Care Physician MEDICAL IMAGING REPORT This report is preliminary unless electronic signature is present EXAM Portable chest. INDICATIONS Endotracheal tube placement. COMPARISON Comparison with earlier today. FINDINGS Endotracheal tube has been placed with tip in satisfactory position above the jenn. There is improved aeration of both lungs. No other change. IMPRESSION Endotracheal tube tip is in satisfactory position above the jenn. Dictated by... Johann Painting M.D. THIS IS AN ELECTRONICALLY VERIFIED REPORT Johann Painting M.D. at 10/01/2016 3:46 PM YENIFER/cy TD: 09/30/2016 18:08 JOB #: [id number] MEDICAL IMAGING REPORT Page 1 of 1 COPY
--- NOTE | ~2016-09-26 | CR72 ---
[facility] A Service of [facility] & [facility] RADIOLOGY TEXT RESULTS PATIENT: FELIX RIVERA LOCATION: [facility] 237-01 : 35 UNIT #: [id number] AGE: [address]: Santhosh Rebollar MD SEX: F ORDER DR: [id number] [facility] [address] [facility]. [place], [place] [address] [id number] I MR#: [id number] Acc #: [id number] NAME: FELIX RIVERA : 1935 SEX: F STUDY DATE/TIME: 10/04/2016 04:43 UNIT: [facility] ROOM: [facility] STUDY DESCRIPTION: CR Chest Single View Portable Attending Physician: Santhosh Rebollar M.D. Ordering Physician: Physician Non-Staff Primary Care Physician: Primary Care Physician No MEDICAL IMAGING REPORT This report is preliminary unless electronic signature is present EXAM Portable chest 10/04/2016 04:43 INDICATION Respiratory failure. Pneumothorax. FINDINGS AP portable chest compared with 10/02/2016. Right chest tube has been removed. There is a tiny right apical pneumothorax but it is smaller than on the prior study. Heart size stable. There is continued dense consolidation at the left base with a small left effusion. Improved aeration noted right base. No left-side pneumothorax. ET tube in the lower trachea in good position. Dictated by... Shane Moon Jr., M.D. THIS IS AN ELECTRONICALLY VERIFIED REPORT Shane Moon Jr., M.D. at 10/05/2016 6:00 AM PARIS/joey TD: 10/04/2016 07:22 JOB #: [id number] MEDICAL IMAGING REPORT Page 1 of 1 COPY
--- NOTE | ~2016-09-26 | EKG ---
PATIENT: FELIX RIVERA UNIT #: [id number] Ventricular Rate: 71 BPM Atrial Rate: 71 BPM P-R Interval: 136 ms QRS Duration: 76 ms Q-T Interval: 440 ms QTC Calculation(Bezet): 478 ms P Pacific: 50 degrees Calculated R Pacific: 8 degrees Calculated T Pacific: 96 degrees Diagnosis Line: Normal sinus rhythm Diagnosis Line: Septal infarct (cited on or before 26-SEP-2016) Diagnosis Line: Abnormal ECG Diagnosis Line: When compared with ECG of 27-SEP-2016 12:59, Diagnosis Line: (unconfirmed) Diagnosis Line: Nonspecific T wave abnormality now evident in Diagnosis Line: Lateral leads Diagnosis Line: QT has shortened Diagnosis Line: Confirmed by ANDREW RAMÍREZ MD ([id number]) on 09/28/2016 Diagnosis Line: 11:15:54 PM INTERPRETING MD: DARRELL CARDONA
--- NOTE | ~2016-09-26 | CR72 ---
[facility] A Service of [facility] & [facility] RADIOLOGY TEXT RESULTS PATIENT: FELIX RIVERA LOCATION: [address]3-19 : 35 UNIT #: [id number] AGE: [address]: Basil Devi MD SEX: F ORDER DR: [id number] [facility] [address] [facility]. [place], [place] [address] [id number] I MR#: [id number] Acc #: [id number] NAME: FELIX RIVERA : 1935 SEX: F STUDY DATE/TIME: 09/28/2016 5:55 UNIT: [facility] ROOM: [facility] STUDY DESCRIPTION: CR Chest Single View Portable Attending Physician: Basil Devi M.D. Ordering Physician: Richelle Blackwell M.D. Primary Care Physician: Primary Care Physician No MEDICAL IMAGING REPORT This report is preliminary unless electronic signature is present EXAM Portable chest HISTORY Congestive heart failure. Follow-up infiltrates. FINDINGS Today's portable view of the chest is compared with yesterday's study. There are low lung volumes with small effusions and right greater than left infiltrates that are stable. Heart size is normal. Dictated by... Wagner Staley M.D. THIS IS AN ELECTRONICALLY VERIFIED REPORT Wagner Staley M.D. at 09/28/2016 4:54 PM Uziel TD: 09/28/2016 08:23 JOB #: [id number] MEDICAL IMAGING REPORT Page 1 of 1 COPY
--- NOTE | ~2016-09-26 | DS ---
Unit #: [id number] #: [id number] Patient: FELIX RIVERA [id number] [facility] [address] [facility]. [place], [place] [address] [id number] I MR#: [id number] NAME: FELIX RIVERA ROOM: [facility] Age: 81 Sex: F Admission Date: 09/26/2016 : 1935 Discharge Date: 10/04/2016 Attending Physician: Santhosh Rebollar M.D. Primary Care Physician: No Primary Care Physician DISCHARGE SUMMARY REVISED REPORT REASONS FOR ADMISSION Acute hypoxic respiratory failure, septic shock, pneumonia, lactic acidosis, acute kidney injury, severe tricuspid regurgitation, shock liver, anemia, right-sided pneumothorax, hyponatremia, prolonged apneic episodes, failure to thrive, profound weakness, immobility syndrome. HISTORY OF PRESENT ILLNESS/HOSPITAL COURSE Patient essentially is a very pleasant 81-year-old female who presented to [facility] on 09/26/2016 secondary to profound weakness. She was a very poor historian at time of admission. She was noted to have acute kidney injury, thought to have a urinary tract infection. She was also noted to have hyperkalemia. She was subsequently admitted for the same. She was placed on IV fluids and Rocephin. She was noted within initial part of hospital stay to become more acidotic. Bicarb was noted to be 10. Lactic acid level was elevated. She was subsequently placed on sepsis protocol. Two-D echocardiogram was ordered. BNP was noted to be elevated at 1,276. Two-D echo showed normal ejection fraction at 50%. She was noted to have findings consistent with right ventricular volume overload, as well as severely dilated right ventricle, as well as severe tricuspid regurgitation. Her acidosis worsened. Renal function worsened. Nephrology consultation was placed. She was initially prepped in consideration for possible hemodialysis. Ultimately, hemodialysis was not done, and her creatinine leveled, and nephrology service continued to follow. Unfortunately, her respiratory status declined significantly. She was placed in the ICU. Subsequently, she was intubated and placed on the ventilator. Over the past 24-48 hours, she has not received any sedation, and unfortunately, she has had prolonged apneic episodes despite intubation. Because of these prolonged apneic episodes and inability for her respiratory status to show improvement, discussion was initiated with the patient's son, who is the power of insurance attorney, as well as numerous family members present at bedside. They were made aware of diagnosis, prognosis and current condition. They stated that the patient would have never wanted life supporting and/or prolonging measures; therefore, they asked ventilator to be discontinued and comfort measures to be initiated. Unit #: [id number] #: [id number] Patient: FELIX RIVERA In accordance with family's wishes, as well as patient's wishes, given the circumstances, comfort care measures will be initiated at this point in time with ventilator now being discontinued. All consultants have been notified, as well. Laboratory studies will be stopped, as well. The patient's son, who is power of insurance attorney, has been made aware. All parties are currently in agreement. FINAL DISCHARGE DIAGNOSES 1. Acute hypoxic respiratory failure. 2. Septic shock. 3. Pneumonia. 4. Lactic acidosis. 5. Acute kidney injury. 6. Severe tricuspid regurgitation. 7. Prolonged apneic episodes seen on ventilator. 8. Shock liver. 9. Anemia. 10. Right-sided pneumothorax. 11. Hyponatremia. 12. Failure to thrive. 13. Persistent immobility syndrome. 14. Dementia, likely mild to moderate. PLAN Comfort care measures only to be initiated. Hospice consultation will also be obtained. Dictated by... Santhosh Rebollar M.D. TODD/servando TD: 10/04/2016 12:02 JOB #: [id number] DISCHARGE SUMMARY Page 1 of 1 X Santhosh Rebollar MD X DISCHARGE SUMMARY
--- NOTE | ~2016-09-26 | CR72 ---
[facility] A Service of [facility] RADIOLOGY TEXT RESULTS PATIENT: FELIX RIVERA LOCATION: [address]3-19 : 35 UNIT #: [id number] AGE: [address]: Basil Devi MD SEX: F ORDER DR: [id number] [facility] [address] [facility]. [place], [place] [address] [id number] I MR#: [id number] Acc #: [id number] NAME: FELIX RIVERA : 1935 SEX: F STUDY DATE/TIME: 09/27/2016 12:39 UNIT: [facility] ROOM: [facility] STUDY DESCRIPTION: CR Chest Single View Portable Attending Physician: Basil Devi M.D. Ordering Physician: Richelle Blackwell M.D. Primary Care Physician: No Primary Care Physician MEDICAL IMAGING REPORT This report is preliminary unless electronic signature is present EXAM Chest portable 09/27/2016 1239 hours HISTORY An 81-year-old with shortness of air, Shiley catheter placement today. COMPARISON 09/26/2016 FINDINGS Portable upright chest demonstrates low lung volumes with stable cardiomegaly, pulmonary venous distension and bilateral interstitial edema. There is plate-like atelectasis at the right base. I see no central venous catheter. There is oxygen tubing overlying the left supraclavicular region. There is no pneumothorax. IMPRESSION 1. Stable chest film is compared to 09/26/2016. Low lung volumes with interstitial edema and plate-like atelectasis at the right base. 2. Stable left greater than right effusion. 3. No central venous catheter is seen. There is no pneumothorax. Dictated by... Lashanda Julio M.D. THIS IS AN ELECTRONICALLY VERIFIED REPORT Lashanda Julio M.D. at 09/28/2016 9:38 AM Doron TD: 09/27/2016 14:31 [facility] A Service of [facility] RADIOLOGY TEXT RESULTS PATIENT: FELIX RIVERA LOCATION: [address]19 : 35 UNIT #: [id number] AGE: [address]: Basil Devi MD SEX: F ORDER DR: JOB #: [id number] MEDICAL IMAGING REPORT Page 1 of 1 COPY
--- NOTE | ~2016-09-26 | CT4 ---
[facility] A Service of [facility] & [facility] RADIOLOGY TEXT RESULTS PATIENT: FEILX RIVERA LOCATION: [facility]3 CICCU3-19 : 35 UNIT #: [id number] AGE: [address]: Basil Devi MD SEX: F ORDER DR: [id number] [facility] [address] [facility] [place], [place] [address] [id number] I MR#: [id number] Acc #: [id number] NAME: FELIX RIVERA : 1935 SEX: F STUDY DATE/TIME: 09/27/2016 1:14 UNIT: [facility] ROOM: 567 STUDY DESCRIPTION: CT Abd and Pelv Wo Cont Attending Physician: Ayah Pederson M.D. Ordering Physician: Ayah Pederson M.D. Primary Care Physician: Primary Care Physician No MEDICAL IMAGING REPORT This report is preliminary unless electronic signature is present EXAM CT abdomen and pelvis without contrast HISTORY Weakness x2 weeks, nausea, evaluate for kidney stones. This CT exam was performed with one or more of the following radiation dose reduction techniques: automatic exposure control, adjustment of mA and/or kV according to patient size, and iterative reconstruction. FINDINGS Axial images performed through the abdomen and pelvis without contrast. Multiplanar reconstructed images reviewed at a workstation. Examination demonstrates cardiomegaly, trace amount of pericardial fluid and bilateral pleural effusions and bibasilar atelectasis. There is a small amount of ascites. Gallbladder demonstrates poorly defined gallbladder wall margins, this is nonspecific in the setting of generalized body wall edema. There are gallstones. Findings could reflect acute cholecystitis. Correlate with directed physical exam and clinical history. There are nonobstructing bilateral renal pelvic stones. Extensive mesenteric and generalized body wall edema as well as ascites, all compatible with third spacing of fluid. Diffuse aortic atherosclerotic changes. No aneurysm. PELVIS: The bladder and uterus are unremarkable. Multilevel degenerative disc changes lumbar spine. IMPRESSION 1. Bilateral pleural effusions. Small amount of ascites. Trace pericardial effusion as well as generalized mesenteric and body wall edema compatible with anasarca. 2. Cholelithiasis with poor definition of the gallbladder wall. I suspect this is all related to generalized body edema but acute STS. [facility] A Service of [facility] & [facility] RADIOLOGY TEXT RESULTS PATIENT: FELIX RIVERA [facility] UNIT #: [id number] AGE: [address]: Basil Devi MD SEX: F ORDER DR: cholecystitis not excluded. Correlate with clinical data and directed physical exam. 3. Bilateral nonobstructing renal stones. 4. Severe spinal stenosis L3-4 due to a combination of listhesis and disc bulging and facet disease. Dictated by... Madeline Painting M.D. THIS IS AN ELECTRONICALLY VERIFIED REPORT Madeline Painting M.D. at 09/27/2016 10:32 PM Wesley TD: 09/27/2016 03:23 JOB #: [id number] MEDICAL IMAGING REPORT Page 1 of 1 COPY
--- NOTE | ~2016-09-26 | OR ---
Unit #: [id number] #: [id number] Patient: FELIX RIVERA [id number] [address] [place], [place] [address] [id number] I MR#: [id number] NAME: FELIX RIVERA ROOM: [facility] Date of Procedure: 09/27/2016 Admission Date: 09/26/2016 Surgeon: Richelle Blackwell M.D. : 1935 Attending Physician: Basil Devi M.D. Primary Care Physician: No Primary Care Physician PROCEDURE OPERATIVE NOTE PREOPERATIVE DIAGNOSIS Renal failure. POSTOPERATIVE DIAGNOSIS Renal failure. PROCEDURE PERFORMED Right femoral dialysis catheter placement. INDICATION Renal failure. PROCEDURE After placing the patient in the appropriate position, we prepped the right femoral area with ChloraPrep and with modified Seldinger technique a 16 cm dialysis catheter was placed in the right femoral vein. The guidewire was removed and in total all three ports were working. The line was secured with two interrupted sutures in place. The patient tolerated the procedure very well with no complications. Dictated by... Iam Pro TD: 09/27/2016 16:07 JOB #: [id number] PROCEDURE OPERATIVE NOTE Page 1 of 1 X Richelle Blackwell MD PROCEDURE OPERATIVE NOTE
--- NOTE | ~2016-09-26 | DS ---
Unit #: [id number] #: [id number] Patient: FELIX RIVERA [id number] [address] [address] [id number] I MR#: [id number] NAME: FELIX RIVERA ROOM: 237 Age: 81 Sex: F Admission Date: 09/26/2016 : 1935 Discharge Date: 10/21/2016 Attending Physician: Santhosh Rebollar M.D. Primary Care Physician: No Primary Care Physician DISCHARGE SUMMARY ADDENDUM Please see previous two discharge summaries for details of hospital course. Patient essentially at this point in time has been placed in a local [facility] per care management. Hospice services will follow while she is there. Overall, her condition is stable at this standpoint. She was maintained on a med/surg floor. Routine medications were administered. She will be transitioned to usp for ongoing management and/or care. Her long-term prognosis is poor. She does have a prior history of end-stage dementia. FINAL DISCHARGE DIAGNOSES 1. Acute hypoxic respiratory failure, resolved. 2. Pneumonia on admission, resolved. 3. Septic shock. 4. End-stage dementia. 5. Failure to thrive/malnutrition. 6. Depression. 7. Anxiety. 8. Hypothyroidism. 9. Urinary tract infection. 10. Hypertension. FINAL DISCHARGE MEDICATIONS 1. Paxil 20 mg daily. 2. Toprol XL 25 mg p.o. every day. 3. Marshall 5/325 one tablet p.o. q.4 p.r.n. 4. Levaquin 500 mg p.o. every day x7 days. 5. Synthroid 25 mcg p.o. every day. 6. Ativan 0.5 mg p.o. q.4 p.r.n. agitation. DISCHARGE CONDITION Stable. DISCHARGE DISPOSITION correction with hospice. Dictated by... Iam Small/jozef Unit #: [id number] #: [id number] Patient: FELIX RIVERA TD: 10/21/2016 11:54 JOB #: [id number] DISCHARGE SUMMARY Page 1 of 1 X Santhosh Rebollar MD DISCHARGE SUMMARY
--- NOTE | ~2016-09-26 | CO ---
Unit #: [id number] #: [id number] Patient: FELIX RIVERA [id number] [address] [place], [place] [address] [id number] I MR#: [id number] NAME: FELIX RIVERA ROOM: [facility] Age: 81 Sex: F Admission Date: 09/26/2016 : 1935 Attending Physician: Basil Devi M.D. Primary Care Physician: No Primary Care Physician CONSULTATION REPORT CHIEF COMPLAINT Acute kidney injury. REASON FOR ADMISSION Critical care management. HISTORY OF PRESENT ILLNESS The patient is an 89-year-old female with a past medical history of hypothyroidism, depression, hypertension, admitted last night with an impression of acute kidney injury and she had hyperkalemia. I am seeing the patient at the bedside. Currently she is moaning and complaining of generalized pain, protecting her airway very well. She is confused. PAST MEDICAL HISTORY 1. Hypertension. 2. Hypothyroidism. 3. Depression. 4. Tonsillectomy. SOCIAL HISTORY Positive smoking. No alcohol. No drug abuse. FAMILY HISTORY None available. ALLERGIES Penicillin. CURRENT MEDICATIONS 1. Ciprofloxacin. 2. Iron. 3. Lasix. 4. Metoprolol. 5. Hydralazine. 6. Paxil. 7. Potassium. REVIEW OF SYSTEMS Unobtainable. PHYSICAL EXAMINATION VITALS: Temperature 98, pulse 67, respiratory rate 12, blood pressure 130/70. LUNGS: Bilateral air entry. Bilateral mild rhonchi. Unit #: [id number] #: [id number] Patient: FELIX RIVERA HEART: S1 plus S2. ABDOMEN: Nontender and soft. Bowel sounds positive. EXTREMITIES: Positive edema. SKIN: No rashes or ulcers. LYMPH: No lymphadenopathy. NEUROLOGIC: Confused. DIAGNOSTIC STUDIES IMAGING: Have been reviewed. LABORATORY: Have been reviewed. ASSESSMENT 1. Acute respiratory failure. 2. Metabolic acidosis. 3. Acute renal failure. 4. Hypertension. 5. Altered mental status. PLAN Continue hemodialysis as per nephrology. Correct potassium. Repeat labs. Repeat blood gas. Continue oxygen, bronchodilator. Chest imaging. Possibly will need volume removal. Will order STAT CT of the chest as well. The patient will be closely monitored. Please see orders for detailed plan. Thank you very much for this consultation. Dictated by... Sajjad Rishi, M.D. SJ/radha TD: 09/27/2016 15:58 JOB #: [id number] CONSULTATION REPORT Page 1 of 1 X Richelle Blackwell MD CONSULTATION REPORT
--- NOTE | ~2016-09-26 | US67 ---
[facility] A Service of [facility] RADIOLOGY TEXT RESULTS PATIENT: FELIX RIVERA LOCATION: [address] : 35 UNIT #: [id number] AGE: [address]: Basil Devi MD SEX: F ORDER DR: [id number] [facility] [address] [facility] [place], [place] [address] [id number] I MR#: [id number] Acc #: [id number] NAME: FELIX RIVERA : 1935 SEX: F STUDY DATE/TIME: 09/27/2016 8:11 UNIT: [facility] ROOM: [facility] STUDY DESCRIPTION: US Gallbladder Attending Physician: Basil Devi M.D. Ordering Physician: Ayah Pederson M.D. Primary Care Physician: No Primary Care Physician MEDICAL IMAGING REPORT This report is preliminary unless electronic signature is present EXAM Right upper quadrant ultrasound Indication Right upper quadrant pain on physical exam yesterday. Patient had a CT on September 27, 2016, which also showed some gallbladder wall edema. TECHNIQUE Sanchez-scale and color Doppler sonographic images were obtained through the right upper quadrant. FINDINGS The visualized portions of the pancreas appear within normal limits. Patient does have a cirrhotic morphology to the liver. There is a small right pleural effusion. No focal hepatic lesions are seen, and there is no intra- or extrahepatic biliary dilatation. The patient is noted to have to-and-fro flow within the main portal vein, certainly suggesting portal hypertension. Right kidney demonstrates some cortical thinning which may reflect some underlying chronic medical renal disease. The liver is enlarged measuring up to 20.7 cm in craniocaudal dimensions. Multiple stones are seen within the gallbladder. Patient does have some gallbladder wall edema and gallbladder thickening. Gallbladder wall edema can be seen in the setting of cirrhosis. Certainly, the gallbladder does not appear dilated, but if there is concern for acute cholecystitis, further evaluation with HIDA scan is suggested. IMPRESSION 1. The patient does have cholelithiasis and some gallbladder wall edema. The gallbladder itself does not appear particularly dilated. I suspect that the appearance is really more related to cirrhosis, rather than to acute cholecystitis. However, if clinical concern persists, further evaluation with HIDA scan suggested. 2. Cirrhotic morphology to the liver. Patient is noted have to-and-fro STS. [facility] A Service of [facility] RADIOLOGY TEXT RESULTS PATIENT: FELIX RIVERA [facility] UNIT #: [id number] AGE: [address]: Basil Devi MD SEX: F ORDER DR: flow within the main portal vein, which is certainly suggestive of portal hypertension. 3. Small right pleural effusion. 4. Echogenic right kidney with cortical thinning may reflect some underlying chronic medical renal disease. Dictated by... Erma Hughes M.D. THIS IS AN ELECTRONICALLY VERIFIED REPORT Erma Hughes M.D. at 09/27/2016 5:22 PM AFF/bartolo TD: 09/27/2016 12:27 JOB #: [id number] MEDICAL IMAGING REPORT Page 1 of 1 COPY
--- NOTE | ~2016-09-26 | DS ---
Unit #: [id number] #: [id number] Patient: FELIX TREADWELL [id number] [facility]. [place], [place] [address] [id number] I MR#: [id number] NAME: FELIX TREADWELL ROOM: 237 Age: 81 Sex: F Admission Date: 09/26/2016 : 1935 Discharge Date: Attending Physician: Santhosh Rebollar M.D. Primary Care Physician: No Primary Care Physician DISCHARGE SUMMARY ADDENDUM Please note that since the time of that discharge dictated note, the patient has been extubated and has been stable respiratory cheng on oxygen via nasal cannula. She is eating and in no distress at this point but patient still is quite confused. She was found to have taken her feces and smeared it all over her body. She answers no to every single question. At this time, patient is very pleasantly confused. Hospice have attempted to see the patient, but she has not been appropriate to be under inpatient hospice care as right now patient is pleasantly confused. She is in no pain and is not agitated, nor in any distress. It is still under my assessment that patient will likely decline. Patient does have dementia and she is pleasantly demented. Patient will be discharged to [facility] for long-term care under comfort measures only. She is currently receiving physical and occupational therapy to assist as she is quite weak, but it is understood under patient's advanced directives that she is a do not intubate/do not resuscitate and she is also a do not return to hospital status. This is confirmed with the patient's son, Mr. Rikki Treadwell, as well as, her brother, Mr. Anderson. Patient will be discharged there when a bed and precertification is obtained. DISCHARGE CONDITION Stable, under comfort measures only. No followups are needed. DISCHARGE MEDICATIONS 1. Tylenol 650 mg orally every four hours as needed for mild pain. 2. Ativan 0.5 mg orally every four hours as needed for agitation and/or anxiety. 3. Hydrocodone with acetaminophen 5/325 one tablet every four hours as needed for lcoectzx-bx-mkxlra pain. This dictation did take 40 minutes to include patient education and to coordinate care. Dictated by... Mamadou Lowe PA-C for Iam Small TD: 10/11/2016 15:31 Unit #: [id number] #: [id number] Patient: FELIX TREADWELL JOB #: [id number] DISCHARGE SUMMARY Page 1 of 1 X X DISCHARGE SUMMARY
--- NOTE | ~2016-09-26 | CR7 ---
[facility] A Service of [facility] RADIOLOGY TEXT RESULTS PATIENT: FELIX RIVERA LOCATION: [address] : [birth year] UNIT #: [id number] AGE: [address]: Basil Devi MD SEX: F ORDER DR: [id number] [facility] [address] [facility]. [place], [place] [address] [id number] I MR#: [id number] Acc #: [id number] NAME: FELIX RIVERA : 1935 SEX: F STUDY DATE/TIME: 09/30/2016 18:09 UNIT: [facility] ROOM: [facility] STUDY DESCRIPTION: CR Abdomen Single AP View Attending Physician: Basil Devi M.D. Ordering Physician: Basil Devi M.D. Primary Care Physician: Primary Care Physician No MEDICAL IMAGING REPORT This report is preliminary unless electronic signature is present EXAM Portable abdomen HISTORY Dobbhoff tube placement today. FINDINGS Feeding tube tip is in the left lower quadrant at the level of the distal gastric body 36 cm beyond the EG junction. 3 calcified gallstones in the right upper quadrant, each measuring 1 cm. Bilateral groin lines terminate in the upper pelvis at the level of the common iliac vessels. Dictated by... Pranay Muniz M.D. THIS IS AN ELECTRONICALLY VERIFIED REPORT Pranay Muniz M.D. at 10/01/2016 2:40 PM DFL/joey TD: 10/01/2016 09:10 JOB #: [id number] MEDICAL IMAGING REPORT Page 1 of 1 COPY
[2016-09-26 18:53] LABS: BASOPHIL% 0.7 % (0-2.5); EOSINOPHIL% 0.2 % (0.0-7.0); HEMATOCRIT 33.3 % (35.0-45.0); HEMOGLOBIN 9.2 gm/dL (12.0-16.0); LYMPHOCYTE# 0.8 X10e3 (1.0-3.5); LYMPHOCYTE% 13.8 % (17.0-45.0); MEAN CELL VOLUME 77.5 FL (83-96); MEAN CORPUSCULAR HEMOGLOBIN 21.4 PG (28-34); MEAN CORPUSCULAR HGB CONC 27.6 g/dL (30-36); MONOCYTE# 0.8 X10e3 (0-1.0); MONOCYTE% 13.4 % (3.0-12.0); NEUTROPHIL# 4.4 X10e3 (1.5-7.1); NEUTROPHIL% 71.9 % (40-75); PLATELET COUNT 272 X10e3 (140-420); RED BLOOD COUNT 4.29 X10e (3.90-5.30); RED CELL DISTRIBUTION WIDTH 24.1 % (11.0-15.5); WHITE BLOOD COUNT 6.1 X10e3 (4.0-10.5)
[2016-09-26 18:59] LABS: DIFF IND YES
[2016-09-26 19:05] LABS: ALBUMIN SERUM 2.9 g/dL (3.5-5.0); BILIRUBIN, DIRECT 0.3 mg/dL (0.0-0.2); BILIRUBIN,INDIRECT 0.6 mg/dL (0.0-0.9); BILIRUBIN,TOTAL 0.9 mg/dL (0.2-2.0); BUN/CREATININE RATIO 23.33; CALCIUM SERUM 8.7 mg/dL (8.4-10.2); CREATININE SERUM 1.8 mg/dL (0.6-1.4); GLOM FILT RATE Estimated 25.9 mL/min (>60); PROTEIN TOTAL SERUM 8.3 g/dL (6.0-8.3)
[2016-09-26 19:07] LABS: POTASSIUM 6.3 mmol/L (3.5-5.1)
[2016-09-26 19:10] LABS: POC - CKMB 6.6 ng/mL (0.0-7.9); POC - TROPONIN <0.05 ng/mL (<=0.05)
[2016-09-26 19:18] LABS: ANISOCYTOSIS SL; PLATELET ESTIMATE NORMAL (NORMAL); RBC NORMAL YES
[2016-09-26 20:12] LABS: URINE SOURCE CLEAN CATCH
[2016-09-26 20:17] LABS: URINE APPEARANCE CLOUDY; URINE BLOOD NEG (NEG); URINE COLOR DK YELLOW; URINE GLUCOSE NEG (NEG); URINE KETONE NEG (NEG); URINE LEUKOCYTE ESTERASE NEG (NEG); URINE NITRATE POS (NEG); URINE PROTEIN 2+ (NEG); URINE SPECIFIC GRAVITY 1.017 (1.003-1.035)
[2016-09-26 20:20] LABS: CULTURE INDICATED? YES; URINE BACTERIA AUWI 2+ (NEGATIVE); URINE SQUAMOUS EPITHELIAL CELL OCC /[HPF]
[2016-09-26 21:34] LABS: POC - CKMB 2.4 ng/mL (0.0-7.9); POC - TROPONIN <0.05 ng/mL (<=0.05)
[2016-09-27 08:02] LABS: BASOPHIL% 0.2 % (0-2.5); EOSINOPHIL% 0.1 % (0.0-7.0); HEMATOCRIT 34.9 % (35.0-45.0); HEMOGLOBIN 9.2 gm/dL (12.0-16.0); LYMPHOCYTE# 0.3 X10e3 (1.0-3.5); LYMPHOCYTE% 3.9 % (17.0-45.0); MEAN CORPUSCULAR HEMOGLOBIN 21.8 PG (28-34); MEAN CORPUSCULAR HGB CONC 26.2 g/dL (30-36); MEAN PLATELET VOLUME 8.8 FL (6.5-11.5); MONOCYTE# 1.1 X10e3 (0-1.0); MONOCYTE% 12.9 % (3.0-12.0); NEUTROPHIL# 6.8 X10e3 (1.5-7.1); NEUTROPHIL% 82.9 % (40-75); PLATELET COUNT 271 X10e3 (140-420); RED BLOOD COUNT 4.21 X10e (3.90-5.30); RED CELL DISTRIBUTION WIDTH 23.8 % (11.0-15.5); WHITE BLOOD COUNT 8.2 X10e3 (4.0-10.5)
[2016-09-27 08:03] LABS: DIFF IND NO
[2016-09-27 08:30] LABS: ALBUMIN SERUM 2.7 g/dL (3.5-5.0); BILIRUBIN,TOTAL 0.8 mg/dL (0.2-2.0); BUN/CREATININE RATIO 20.47; CALCIUM SERUM 8.3 mg/dL (8.4-10.2); CREATININE SERUM 2.1 mg/dL (0.6-1.4); GLOM FILT RATE Estimated 21.5 mL/min (>60); PROTEIN TOTAL SERUM 7.8 g/dL (6.0-8.3)
[2016-09-27 08:33] LABS: POTASSIUM 6.2 mmol/L (3.5-5.1)
[2016-09-27 08:51] LABS: MB 11.3 ng/ml
[2016-09-27] MEDS ORDERED: LASIX20 MG PO (11:01)
[2016-09-27] MEDS ORDERED: CIPRO PO (11:03)
[2016-09-27] MEDS ORDERED: HYDRALAZINE HCL25 MG PO (11:05)
[2016-09-27] MEDS ORDERED: K-DUR20 ME1 PO (11:06)
[2016-09-27] MEDS ORDERED: FERROUS SULFATE PO (11:07)
[2016-09-27] MEDS ORDERED: METOPROLOL SUCC25 MG PO (11:08)
[2016-09-27] MEDS ORDERED: LEVOTHYROXINE25 MC1 PO (11:09)
[2016-09-27] MEDS ORDERED: PAXIL PO (11:09)
[2016-09-27 13:36] LABS: ARTERIAL BLD GAS O2 SATURATION 94.7 % (90.0-100.0); ARTERIAL BLOOD GAS CARBOXY HB 1.4 %sat (0.0-9.0); ARTERIAL BLOOD GAS HCO3 9.8 mmol/L; ARTERIAL BLOOD GAS MET HB 0.6 %sat (0.0-2.0); ARTERIAL BLOOD GAS PCO2 33.8 mmHg (35.0-45.0); ARTERIAL BLOOD GAS PO2 99.8 mmHg (80.0-100)
[2016-09-27 13:38] LABS: ARTERIAL BLOOD GAS ART SITE RIGHT BRACHIAL; ARTERIAL BLOOD GAS DELIVERY NASAL CANNULA; ARTERIAL DRAW? YES
[2016-09-28 03:57] LABS: ARTERIAL BLD GAS O2 SATURATION 97.2 % (90.0-100.0); ARTERIAL BLOOD GAS CARBOXY HB 1.5 %sat (0.0-9.0); ARTERIAL BLOOD GAS HCO3 25.4 mmol/L; ARTERIAL BLOOD GAS MET HB 0.6 %sat (0.0-2.0); ARTERIAL BLOOD GAS pH 7.308 (7.350-7.450)
[2016-09-28 04:00] LABS: ARTERIAL BLOOD GAS ART SITE RIGHT BRACHIAL; ARTERIAL BLOOD GAS DELIVERY NASAL CANNULA; ARTERIAL BLOOD GAS PCO2 50.7 mmHg (35.0-45.0); ARTERIAL DRAW? YES
[2016-09-28 04:57] LABS: BASOPHIL% 0.3 % (0-2.5); EOSINOPHIL% 0.1 % (0.0-7.0); HEMATOCRIT 28.6 % (35.0-45.0); HEMOGLOBIN 8.1 gm/dL (12.0-16.0); LYMPHOCYTE# 0.8 X10e3 (1.0-3.5); LYMPHOCYTE% 4.9 % (17.0-45.0); MEAN CELL VOLUME 77.1 FL (83-96); MEAN CORPUSCULAR HEMOGLOBIN 21.8 PG (28-34); MEAN CORPUSCULAR HGB CONC 28.2 g/dL (30-36); MEAN PLATELET VOLUME 7.8 FL (6.5-11.5); MONOCYTE# 1.8 X10e3 (0-1.0); MONOCYTE% 10.7 % (3.0-12.0); NEUTROPHIL# 14.4 X10e3 (1.5-7.1); PLATELET COUNT 212 X10e3 (140-420); RED BLOOD COUNT 3.71 X10e (3.90-5.30); RED CELL DISTRIBUTION WIDTH 23.6 % (11.0-15.5); WHITE BLOOD COUNT 17.1 X10e3 (4.0-10.5)
[2016-09-28 04:58] LABS: DIFF IND YES
[2016-09-28 05:08] LABS: NUCLEATED RED BLOOD CELL 3 /100 ([, 0]); PLATELET ESTIMATE NORMAL (NORMAL)
[2016-09-28 05:09] LABS: HYPOCHROMIA SL; MICROCYTOSIS MOD; POLYCHROMASIA SL
[2016-09-28 05:10] LABS: SMUDGE CELLS 11 /100
[2016-09-28 07:17] LABS: ALBUMIN SERUM 2.3 g/dL (3.5-5.0); BILIRUBIN,TOTAL 1.1 mg/dL (0.2-2.0); BUN/CREATININE RATIO 12.35; CALCIUM SERUM 7.3 mg/dL (8.4-10.2); CREATININE SERUM 1.7 mg/dL (0.6-1.4); GLOM FILT RATE Estimated 27.8 mL/min (>60); PROTEIN TOTAL SERUM 6.7 g/dL (6.0-8.3)
[2016-09-28 07:18] LABS: POTASSIUM 4.4 mmol/L (3.5-5.1)
[2016-09-28 13:24] LABS: %MB 7.1 % (0.0-4.0); MB 16.2 ng/ml
[2016-09-29 04:12] LABS: BASOPHIL# 0.1 X10e3 (0-0.3); BASOPHIL% 0.5 % (0-2.5); EOSINOPHIL% 0.1 % (0.0-7.0); HEMATOCRIT 25.4 % (35.0-45.0); HEMOGLOBIN 7.4 gm/dL (12.0-16.0); LYMPHOCYTE# 0.6 X10e3 (1.0-3.5); LYMPHOCYTE% 5.5 % (17.0-45.0); MEAN CELL VOLUME 75.3 FL (83-96); MEAN CORPUSCULAR HEMOGLOBIN 21.9 PG (28-34); MEAN CORPUSCULAR HGB CONC 29.1 g/dL (30-36); MEAN PLATELET VOLUME 7.7 FL (6.5-11.5); MONOCYTE# 1.2 X10e3 (0-1.0); MONOCYTE% 11.4 % (3.0-12.0); NEUTROPHIL# 8.7 X10e3 (1.5-7.1); NEUTROPHIL% 82.5 % (40-75); PLATELET COUNT 197 X10e3 (140-420); RED BLOOD COUNT 3.37 X10e (3.90-5.30); RED CELL DISTRIBUTION WIDTH 23.7 % (11.0-15.5); WHITE BLOOD COUNT 10.6 X10e3 (4.0-10.5)
[2016-09-29 04:20] LABS: INR 2.1
[2016-09-29 04:28] LABS: PROTHROMBIN TIME (PATIENT) 22.8 SECONDS (9.6-11.5)
[2016-09-29 04:32] LABS: DIFF IND YES
[2016-09-29 04:37] LABS: ALBUMIN SERUM 2.1 g/dL (3.5-5.0); BILIRUBIN,TOTAL 0.9 mg/dL (0.2-2.0); BUN/CREATININE RATIO 14.58; CALCIUM SERUM 7.3 mg/dL (8.4-10.2); CREATININE SERUM 2.4 mg/dL (0.6-1.4); GLOM FILT RATE Estimated 18.3 mL/min (>60); MAGNESIUM 1.7 mg/dL (1.6-3.0); POTASSIUM 3.8 mmol/L (3.5-5.1); PROTEIN TOTAL SERUM 6.3 g/dL (6.0-8.3)
[2016-09-29 04:51] LABS: ANISOCYTOSIS SL; MICROCYTOSIS MOD; PLATELET ESTIMATE NORMAL (NORMAL)
[2016-09-29 04:52] LABS: HYPOCHROMIA SL; TARGET CELLS SL
[2016-09-29 05:15] LABS: ARTERIAL BLOOD GAS CARBOXY HB 1.5 %sat (0.0-9.0); ARTERIAL BLOOD GAS HCO3 33.1 mmol/L; ARTERIAL BLOOD GAS MET HB 0.6 %sat (0.0-2.0); ARTERIAL BLOOD GAS PO2 81.7 mmHg (80.0-100); ARTERIAL BLOOD GAS pH 7.293 (7.350-7.450)
[2016-09-29 05:16] LABS: ARTERIAL BLOOD GAS ART SITE RIGHT BRACHIAL; ARTERIAL BLOOD GAS DELIVERY NASAL CANNULA; ARTERIAL BLOOD GAS PCO2 68.3 mmHg (35.0-45.0); ARTERIAL DRAW? YES
[2016-09-30 04:00] LABS: ARTERIAL BLD GAS O2 SATURATION 91.2 % (90.0-100.0); ARTERIAL BLOOD GAS CARBOXY HB 1.6 %sat (0.0-9.0); ARTERIAL BLOOD GAS HCO3 30.5 mmol/L; ARTERIAL BLOOD GAS MET HB 0.6 %sat (0.0-2.0); ARTERIAL BLOOD GAS pH 7.224 (7.350-7.450)
[2016-09-30 04:02] LABS: ARTERIAL BLOOD GAS ALLEN TEST NORMAL; ARTERIAL BLOOD GAS ART SITE RIGHT RADIAL; ARTERIAL BLOOD GAS DELIVERY NASAL CANNULA; ARTERIAL BLOOD GAS PCO2 73.8 mmHg (35.0-45.0); ARTERIAL DRAW? YES
[2016-09-30 04:58] LABS: EOSINOPHIL# 0.1 X10e3 (0-0.7); EOSINOPHIL% 1.1 % (0.0-7.0); HEMATOCRIT 27.4 % (35.0-45.0); HEMOGLOBIN 7.7 gm/dL (12.0-16.0); LYMPHOCYTE# 0.5 X10e3 (1.0-3.5); LYMPHOCYTE% 5.3 % (17.0-45.0); MEAN CELL VOLUME 76.8 FL (83-96); MEAN CORPUSCULAR HEMOGLOBIN 21.5 PG (28-34); MEAN CORPUSCULAR HGB CONC 28.1 g/dL (30-36); MONOCYTE% 11.7 % (3.0-12.0); NEUTROPHIL# 7.2 X10e3 (1.5-7.1); NEUTROPHIL% 81.9 % (40-75); PLATELET COUNT 159 X10e3 (140-420); RED BLOOD COUNT 3.57 X10e (3.90-5.30); RED CELL DISTRIBUTION WIDTH 22.4 % (11.0-15.5); WHITE BLOOD COUNT 8.8 X10e3 (4.0-10.5)
[2016-09-30 04:59] LABS: DIFF IND NO
[2016-09-30 05:27] LABS: ARTERIAL BLD GAS O2 SATURATION 94.1 % (90.0-100.0); ARTERIAL BLOOD GAS CARBOXY HB 1.4 %sat (0.0-9.0); ARTERIAL BLOOD GAS HCO3 30.4 mmol/L; ARTERIAL BLOOD GAS MET HB 0.7 %sat (0.0-2.0); ARTERIAL BLOOD GAS PO2 89.5 mmHg (80.0-100); ARTERIAL BLOOD GAS pH 7.207 (7.350-7.450)
[2016-09-30 05:29] LABS: ARTERIAL BLOOD GAS ALLEN TEST NORMAL; ARTERIAL BLOOD GAS ART SITE LEFT RADIAL; ARTERIAL BLOOD GAS PCO2 76.5 mmHg (35.0-45.0); ARTERIAL DRAW? YES
[2016-09-30 06:06] LABS: ALBUMIN SERUM 2.2 g/dL (3.5-5.0); BILIRUBIN,TOTAL 0.8 mg/dL (0.2-2.0); BUN/CREATININE RATIO 11.17; CALCIUM SERUM 7.4 mg/dL (8.4-10.2); CREATININE SERUM 1.7 mg/dL (0.6-1.4); GLOM FILT RATE Estimated 27.8 mL/min (>60); MAGNESIUM 1.8 mg/dL (1.6-3.0); PROTEIN TOTAL SERUM 6.6 g/dL (6.0-8.3)
[2016-09-30 06:33] LABS: ARTERIAL BLD GAS O2 SATURATION 95.6 % (90.0-100.0); ARTERIAL BLOOD GAS CARBOXY HB 1.7 %sat (0.0-9.0); ARTERIAL BLOOD GAS HCO3 29.9 mmol/L; ARTERIAL BLOOD GAS MET HB 0.5 %sat (0.0-2.0); ARTERIAL BLOOD GAS PO2 99.6 mmHg (80.0-100)
[2016-09-30 06:34] LABS: ARTERIAL BLOOD GAS pH 7.182 (7.350-7.450)
[2016-09-30 06:35] LABS: ARTERIAL BLOOD GAS ALLEN TEST NORMAL; ARTERIAL BLOOD GAS ART SITE RIGHT RADIAL; ARTERIAL BLOOD GAS DELIVERY NASAL CANNULA; ARTERIAL BLOOD GAS PCO2 79.8 mmHg (35.0-45.0); ARTERIAL DRAW? YES
[2016-09-30 09:24] LABS: ARTERIAL BLD GAS O2 SATURATION 93.9 % (90.0-100.0); ARTERIAL BLOOD GAS CARBOXY HB 1.8 %sat (0.0-9.0); ARTERIAL BLOOD GAS HCO3 29.1 mmol/L; ARTERIAL BLOOD GAS MET HB 0.4 %sat (0.0-2.0); ARTERIAL BLOOD GAS pH 7.326 (7.350-7.450)
[2016-09-30 09:26] LABS: ARTERIAL BLOOD GAS ALLEN TEST NORMAL; ARTERIAL BLOOD GAS ART SITE RIGHT RADIAL; ARTERIAL BLOOD GAS PCO2 55.9 mmHg (35.0-45.0); ARTERIAL BLOOD GAS PO2 72.7 mmHg (80.0-100); ARTERIAL BLOOD GAS VENT MODE A/C; ARTERIAL DRAW? YES
[2016-10-01 04:12] LABS: ARTERIAL BLD GAS O2 SATURATION 97.3 % (90.0-100.0); ARTERIAL BLOOD GAS CARBOXY HB 1.6 %sat (0.0-9.0); ARTERIAL BLOOD GAS MET HB 0.5 %sat (0.0-2.0); ARTERIAL BLOOD GAS pH 7.474 (7.350-7.450)
[2016-10-01 04:23] LABS: ARTERIAL BLOOD GAS ART SITE RIGHT BRACHIAL; ARTERIAL BLOOD GAS DELIVERY VENT; ARTERIAL BLOOD GAS VENT MODE AC; ARTERIAL DRAW? YES
[2016-10-01 06:00] LABS: HEMATOCRIT 25.8 % (35.0-45.0); HEMOGLOBIN 7.6 gm/dL (12.0-16.0); MEAN CORPUSCULAR HEMOGLOBIN 21.5 PG (28-34); MEAN CORPUSCULAR HGB CONC 29.3 g/dL (30-36); RED BLOOD COUNT 3.52 X10e (3.90-5.30); RED CELL DISTRIBUTION WIDTH 23.3 % (11.0-15.5); WHITE BLOOD COUNT 6.7 X10e3 (4.0-10.5)
[2016-10-01 06:03] LABS: MEAN CELL VOLUME 73.3 FL (83-96)
[2016-10-01 06:49] LABS: BILIRUBIN,TOTAL 0.9 mg/dL (0.2-2.0); BUN/CREATININE RATIO 13.15; CALCIUM SERUM 7.7 mg/dL (8.4-10.2); CREATININE SERUM 1.9 mg/dL (0.6-1.4); GLOM FILT RATE Estimated 24.3 mL/min (>60); MAGNESIUM 1.6 mg/dL (1.6-3.0); PROTEIN TOTAL SERUM 6.1 g/dL (6.0-8.3)
[2016-10-01 19:13] LABS: BODY FLUID APPEARANCE CLOUDY; BODY FLUID SOURCE BRONCHIAL LAVAGE
[2016-10-02 01:08] LABS: HA AB IGM (HEPPAN) Nonreactive (()); HB CORE AB IGM (HEPPAN) Nonreactive (Nonreactive); HB S AG (HEPPAN) Nonreactive (Nonreactive); HEP C AB (HEPPAN) Nonreactive (Nonreactive)
[2016-10-02 04:46] LABS: BASOPHIL% 0.1 % (0-2.5); HEMOGLOBIN 7.4 gm/dL (12.0-16.0); LYMPHOCYTE# 0.1 X10e3 (1.0-3.5); LYMPHOCYTE% 2.2 % (17.0-45.0); MEAN CELL VOLUME 72.4 FL (83-96); MEAN CORPUSCULAR HEMOGLOBIN 21.5 PG (28-34); MEAN CORPUSCULAR HGB CONC 29.7 g/dL (30-36); MEAN PLATELET VOLUME 7.4 FL (6.5-11.5); MONOCYTE# 0.3 X10e3 (0-1.0); MONOCYTE% 4.9 % (3.0-12.0); NEUTROPHIL# 5.9 X10e3 (1.5-7.1); NEUTROPHIL% 92.8 % (40-75); PLATELET COUNT 126 X10e3 (140-420); RED BLOOD COUNT 3.45 X10e (3.90-5.30); RED CELL DISTRIBUTION WIDTH 23.2 % (11.0-15.5); WHITE BLOOD COUNT 6.3 X10e3 (4.0-10.5)
[2016-10-02 04:49] LABS: ARTERIAL BLD GAS O2 SATURATION 98.4 % (90.0-100.0); ARTERIAL BLOOD GAS CARBOXY HB 1.4 %sat (0.0-9.0); ARTERIAL BLOOD GAS HCO3 33.2 mmol/L; ARTERIAL BLOOD GAS MET HB 0.5 %sat (0.0-2.0); ARTERIAL BLOOD GAS PCO2 44.3 mmHg (35.0-45.0); ARTERIAL BLOOD GAS pH 7.483 (7.350-7.450)
[2016-10-02 04:49] LABS: DIFF IND NO
[2016-10-02 04:50] LABS: ARTERIAL BLOOD GAS ALLEN TEST NORMAL; ARTERIAL BLOOD GAS ART SITE RIGHT RADIAL; ARTERIAL BLOOD GAS DELIVERY VENT; ARTERIAL BLOOD GAS VENT MODE AC; ARTERIAL DRAW? YES
[2016-10-02 05:06] LABS: ALBUMIN SERUM 2.1 g/dL (3.5-5.0); BUN/CREATININE RATIO 14.5; CALCIUM SERUM 7.6 mg/dL (8.4-10.2); GLOM FILT RATE Estimated 22.8 mL/min (>60); POTASSIUM 4.2 mmol/L (3.5-5.1); PROTEIN TOTAL SERUM 6.4 g/dL (6.0-8.3)
[2016-10-03 05:14] LABS: BASOPHIL% 0.1 % (0-2.5); HEMATOCRIT 22.5 % (35.0-45.0); LYMPHOCYTE# 0.3 X10e3 (1.0-3.5); LYMPHOCYTE% 4.3 % (17.0-45.0); MEAN CELL VOLUME 71.7 FL (83-96); MEAN CORPUSCULAR HEMOGLOBIN 21.5 PG (28-34); MEAN PLATELET VOLUME 7.6 FL (6.5-11.5); MONOCYTE# 0.9 X10e3 (0-1.0); MONOCYTE% 12.2 % (3.0-12.0); NEUTROPHIL# 6.1 X10e3 (1.5-7.1); NEUTROPHIL% 83.4 % (40-75); PLATELET COUNT 156 X10e3 (140-420); RED BLOOD COUNT 3.14 X10e (3.90-5.30); RED CELL DISTRIBUTION WIDTH 23.2 % (11.0-15.5); WHITE BLOOD COUNT 7.3 X10e3 (4.0-10.5)
[2016-10-03 05:16] LABS: DIFF IND YES; HEMOGLOBIN 6.8 gm/dL (12.0-16.0)
[2016-10-03 05:43] LABS: ARTERIAL BLD GAS O2 SATURATION 97.7 % (90.0-100.0); ARTERIAL BLOOD GAS ALLEN TEST NORMAL; ARTERIAL BLOOD GAS ART SITE LEFT BRACHIAL; ARTERIAL BLOOD GAS CARBOXY HB 1.4 %sat (0.0-9.0); ARTERIAL BLOOD GAS DELIVERY VENT; ARTERIAL BLOOD GAS HCO3 35.8 mmol/L; ARTERIAL BLOOD GAS MET HB 1.3 %sat (0.0-2.0); ARTERIAL BLOOD GAS PCO2 43.7 mmHg (35.0-45.0); ARTERIAL BLOOD GAS VENT MODE AC; ARTERIAL BLOOD GAS pH 7.522 (7.350-7.450); ARTERIAL DRAW? YES
[2016-10-03 05:59] LABS: ANISOCYTOSIS MOD; HYPOCHROMIA SL; PLATELET ESTIMATE NORMAL (NORMAL); POIKILOCYTOSIS SL; RBC NORMAL YES; TARGET CELLS SL
[2016-10-03 06:19] LABS: BILIRUBIN,TOTAL 0.6 mg/dL (0.2-2.0); BUN/CREATININE RATIO 20.47; CALCIUM SERUM 7.9 mg/dL (8.4-10.2); CREATININE SERUM 2.1 mg/dL (0.6-1.4); GLOM FILT RATE Estimated 21.5 mL/min (>60); POTASSIUM 4.4 mmol/L (3.5-5.1); PROTEIN TOTAL SERUM 5.8 g/dL (6.0-8.3)
[2016-10-04 06:09] LABS: BASOPHIL% 0.1 % (0-2.5); EOSINOPHIL% 0.4 % (0.0-7.0); HEMATOCRIT 22.7 % (35.0-45.0); LYMPHOCYTE# 0.7 X10e3 (1.0-3.5); MEAN CELL VOLUME 72.1 FL (83-96); MEAN CORPUSCULAR HEMOGLOBIN 21.5 PG (28-34); MEAN CORPUSCULAR HGB CONC 29.9 g/dL (30-36); MEAN PLATELET VOLUME 7.7 FL (6.5-11.5); MONOCYTE# 1.2 X10e3 (0-1.0); MONOCYTE% 17.1 % (3.0-12.0); NEUTROPHIL# 5.2 X10e3 (1.5-7.1); NEUTROPHIL% 72.4 % (40-75); PLATELET COUNT 172 X10e3 (140-420); RED BLOOD COUNT 3.15 X10e (3.90-5.30); WHITE BLOOD COUNT 7.2 X10e3 (4.0-10.5)
[2016-10-04 06:18] LABS: HEMOGLOBIN 6.8 gm/dL (12.0-16.0)
[2016-10-04 06:19] LABS: DIFF IND NO
[2016-10-04 07:15] LABS: BUN/CREATININE RATIO 30.58; CALCIUM SERUM 8.2 mg/dL (8.4-10.2); CREATININE SERUM 1.7 mg/dL (0.6-1.4); GLOM FILT RATE Estimated 27.8 mL/min (>60); MAGNESIUM 2.1 mg/dL (1.6-3.0)
[2016-10-05 06:30] LABS: BASOPHIL% 0.1 % (0-2.5); EOSINOPHIL# 0.2 X10e3 (0-0.7); EOSINOPHIL% 4.1 % (0.0-7.0); HEMATOCRIT 25.3 % (35.0-45.0); HEMOGLOBIN 7.3 gm/dL (12.0-16.0); LYMPHOCYTE# 0.7 X10e3 (1.0-3.5); LYMPHOCYTE% 12.4 % (17.0-45.0); MEAN CELL VOLUME 73.4 FL (83-96); MEAN CORPUSCULAR HEMOGLOBIN 21.1 PG (28-34); MEAN CORPUSCULAR HGB CONC 28.7 g/dL (30-36); MEAN PLATELET VOLUME 7.7 FL (6.5-11.5); MONOCYTE# 0.9 X10e3 (0-1.0); MONOCYTE% 14.6 % (3.0-12.0); NEUTROPHIL# 4.1 X10e3 (1.5-7.1); NEUTROPHIL% 68.8 % (40-75); PLATELET COUNT 162 X10e3 (140-420); RED BLOOD COUNT 3.44 X10e (3.90-5.30); RED CELL DISTRIBUTION WIDTH 22.7 % (11.0-15.5)
[2016-10-05 06:33] LABS: DIFF IND NO
[2016-10-05 07:22] LABS: BUN/CREATININE RATIO 39.23; CALCIUM SERUM 8.2 mg/dL (8.4-10.2); CREATININE SERUM 1.3 mg/dL (0.6-1.4); GLOM FILT RATE Estimated 38.4 mL/min (>60); POTASSIUM 3.2 mmol/L (3.5-5.1)
[2016-10-06 06:09] LABS: HEMOGLOBIN 7.9 gm/dL (12.0-16.0); MEAN CELL VOLUME 74.8 FL (83-96); MEAN CORPUSCULAR HEMOGLOBIN 21.2 PG (28-34); MEAN CORPUSCULAR HGB CONC 28.4 g/dL (30-36); MEAN PLATELET VOLUME 7.9 FL (6.5-11.5); RED BLOOD COUNT 3.74 X10e (3.90-5.30); RED CELL DISTRIBUTION WIDTH 22.5 % (11.0-15.5); WHITE BLOOD COUNT 6.1 X10e3 (4.0-10.5)
[2016-10-08 09:07] LABS: HEMOGLOBIN 8.5 gm/dL (12.0-16.0); MEAN CELL VOLUME 73.7 FL (83-96); MEAN CORPUSCULAR HEMOGLOBIN 20.9 PG (28-34); MEAN CORPUSCULAR HGB CONC 28.3 g/dL (30-36); MEAN PLATELET VOLUME 6.9 FL (6.5-11.5); RED BLOOD COUNT 4.07 X10e (3.90-5.30); RED CELL DISTRIBUTION WIDTH 21.8 % (11.0-15.5); WHITE BLOOD COUNT 6.7 X10e3 (4.0-10.5)
[2016-10-08 10:27] LABS: CALCIUM SERUM 8.1 mg/dL (8.4-10.2); GLOM FILT RATE Estimated 52.8 mL/min (>60); POTASSIUM 3.2 mmol/L (3.5-5.1)
[2016-10-17 11:32] LABS: HEMATOCRIT 27.7 % (35.0-45.0); MEAN CELL VOLUME 73.3 FL (83-96); MEAN CORPUSCULAR HEMOGLOBIN 21.2 PG (28-34); MEAN PLATELET VOLUME 7.9 FL (6.5-11.5); RED BLOOD COUNT 3.79 X10e (3.90-5.30); RED CELL DISTRIBUTION WIDTH 22.7 % (11.0-15.5); WHITE BLOOD COUNT 6.3 X10e3 (4.0-10.5)
[2016-10-17 11:46] LABS: CALCIUM SERUM 8.4 mg/dL (8.4-10.2); CREATININE SERUM 0.8 mg/dL (0.6-1.4); GLOM FILT RATE Estimated 69.2 mL/min (>60); MAGNESIUM 1.7 mg/dL (1.6-3.0); POTASSIUM 3.6 mmol/L (3.5-5.1)
[2016-10-17 14:04] LABS: URINE APPEARANCE CLOUDY; URINE BILIRUBIN NEG (NEG); URINE BLOOD 3+ (NEG); URINE COLOR YELLOW; URINE GLUCOSE NEG (NEG); URINE KETONE NEG (NEG); URINE LEUKOCYTE ESTERASE 3+ (NEG); URINE NITRATE NEG (NEG); URINE PH 5.5 (5-8); URINE PROTEIN 2+ (NEG); URINE SPECIFIC GRAVITY 1.018 (1.003-1.035); URINE UROBILINOGEN 0.2 MG/DL (NEG)
[2016-10-17 14:06] LABS: CULTURE INDICATED? YES; URBCS1 AUWI INNUM /[HPF] (0-2); URINE BACTERIA AUWI 4+ (NEGATIVE); URINE SQUAMOUS EPITHELIAL CELL NONE SEEN /[HPF]; UWBCS1 AUWI INNUM (0-5)
== END 2016-10-21 14:17 | DRG 853 ==
LOC: CED 17:39 → CEDOF 22:55 → C5C 22:55 → CICCU3 22:55 → CED 22:55 → CEDOF 09-27 01:29 → C5C 09-27 01:29 → CICCU3 09-27 12:05 → CICCU2 09-28 22:37 → C2A 10-04 21:44
PROVIDERS: Emergency Medicine; Family Medicine; Internal Medicine; Internal Medicine Cardiovascular Disease; Internal Medicine Nephrology; Nurse Practitioner
PROC: 05H333Z Insertion of Infusion Device into Right Innominate Vein, Percutaneous Approach (ICD-10-PCS; 2016-09-27)
PROC: B24BYZZ Ultrasonography of Heart with Aorta using Other Contrast (ICD-10-PCS; 2016-09-27)
PROC: 5A1D60Z (ICD-10-PCS; 2016-09-27)
PROC: 5A1955Z Respiratory Ventilation, Greater than 96 Consecutive Hours (ICD-10-PCS; 2016-09-30)
PROC: 0BH17EZ Insertion of Endotracheal Airway into Trachea, Via Natural or Artificial Opening (ICD-10-PCS; 2016-09-30)
PROC: 0B9J8ZX Drainage of Left Lower Lung Lobe, Via Natural or Artificial Opening Endoscopic, Diagnostic (ICD-10-PCS; 2016-10-01 14:05)
PROC: 0W9930Z Drainage of Right Pleural Cavity with Drainage Device, Percutaneous Approach (ICD-10-PCS; principal; 2016-10-03)
DX: A41.9 Sepsis, unspecified organism (principal); R65.21 Severe sepsis with septic shock; K72.00 Acute and subacute hepatic failure without coma; N17.0 Acute kidney failure with tubular necrosis; J96.01 Acute respiratory failure with hypoxia; J18.9 Pneumonia, unspecified organism; G92 Toxic encephalopathy; E43 Unspecified severe protein-calorie malnutrition; I50.33 Acute on chronic diastolic (congestive) heart failure; N39.0 Urinary tract infection, site not specified; E87.2 Acidosis; J93.83 Other pneumothorax; I13.0 Hypertensive heart and chronic kidney disease with heart failure and stage 1 through stage 4 chronic kidney disease, or unspecified chronic kidney disease; E87.3 Alkalosis; E87.1 Hypo-osmolality and hyponatremia; N18.4 Chronic kidney disease, stage 4 (severe); E87.5 Hyperkalemia; E86.0 Dehydration; E03.9 Hypothyroidism, unspecified; F32.9 Major depressive disorder, single episode, unspecified; Z88.0 Allergy status to penicillin; Z87.891 Personal history of nicotine dependence; E16.2 Hypoglycemia, unspecified; T68.XXXA Hypothermia, initial encounter; Z51.5 Encounter for palliative care; I27.2 Other secondary pulmonary hypertension; I08.1 Rheumatic disorders of both mitral and tricuspid valves; K74.60 Unspecified cirrhosis of liver; D64.9 Anemia, unspecified; E87.6 Hypokalemia; R62.7 Adult failure to thrive; F03.90 Unspecified dementia, unspecified severity, without behavioral disturbance, psychotic disturbance, mood disturbance, and anxiety; Z68.20 Body mass index [BMI] 20.0-20.9, adult
CPT/HCPCS: 36600; 51701; 71010; 71250; 73560; 74000; 74176; 76705; 78582; 80048; 80053; 80074; 80076; 81003; 82150; 82308; 82533; 82550; 82553; 82803; 82947; 83605; 83690; 83735; 83880; 84132; 84439; 84443; 84484; 85025; 85027; 85379; 85610; 86850; 86900; 86901; 86923; 87040; 87070; 87086; 87102; 87106; 87116; 87186; 87205; 87206; 87252; 87254; 87278; 87340; 87493; 88108; 88305; 88312; 89051; 93005; 93306; 93970; 94002; 94003; 94640; 94660; 94760; 94761; 96360; 96361; 97110; 97116; 97162; 97167; 97530; 97535; 99291; A9540; A9567; C1729; C1750; G8978-GP; G8979-GP; G8987-GO; G8988-GO; J0171; J0610; J0696; J1265; J1610; J1644; J1650; J1720; J1940; J1956; J2250; J2270; J2370; J2405; J3010; J3475; Q4081